=== PATIENT | male | born 1940 | race Caucasian/White ===

== ENCOUNTER 2016-05-24 10:18 | Inpatient (IN) | payer OTHER ==
[~2016-05-24] VITALS: Ht 175.3 cm; Wt 81.6 kg
[2016-05-24] MEDS ORDERED: CARV25TA2 PO (10:53)
[2016-05-24] MEDS ORDERED: ATOR-22 PO (10:53)
[2016-05-24] MEDS ORDERED: SITA100T3 PO (10:53)
[2016-05-24] MEDS ORDERED: GLC500 PO (10:53)
[2016-05-24] MEDS ORDERED: CLOP1TAB15 PO (10:53)
[2016-05-24] MEDS ORDERED: GLC/500 PO (10:53)
[2016-05-24] MEDS ORDERED: LISI20TA3 PO (10:53)
[2016-05-24] MEDS ORDERED: ASPI81TA28 PO (10:53)
[2016-05-24] MEDS ORDERED: DILT120T3 PO (10:53)
[2016-05-24] MEDS ORDERED: PRED5PAK3 PO (10:53)
[2016-05-24] MEDS ORDERED: SODIUM CHLORIDE 0.9% 500ML 500 ML IV STA (11:06)
[2016-05-24] MEDS ORDERED: OPTIRAY 320 IV PRN (11:15)
[2016-05-24] MEDS ORDERED: ALBUT/IPRATROP 3MG/0.5MG NEB 3 ML VIAL INH ONE (11:15)
--- NOTE | 2016-05-24 11:32 | DIAGNOSTIC IMAGING REPORT ---
CHEST ONE VIEW PORTABLE HISTORY: Short of breath. COMPARISON: None. FINDINGS: No pneumothorax. The heart is top normal in size. Poststernotomy changes. No pleural effusions. Bibasilar interstitial thickening with a patchy airspace opacity the right lung base. IMPRESSION: 1. Patchy airspace opacity at the right lung base. This may represent a developing pneumonia. Recommend follow-up to ensure resolution. 2. Bibasilar interstitial thickening which may be chronic. Electronically signed by: Manish Lilly M.D. 05/24/2016 11:30 AM Dictated Date/Time: 05/24/2016 11:30 AM
[2016-05-24 11:39] LABS: ISTAT CREATININE 1.3 mg/dl (0.6-1.3); ISTAT HEMOGLOBIN 11.6 g/dl (14.0-18.0); ISTAT IONIZED CALCIUM 1.24 mmol/l (1.12-1.32)
[2016-05-24] MEDS ORDERED: LEVAQUIN 500MG / 100ML D5W IV STA (11:40)
[2016-05-24] MEDS ORDERED: PIPERACILLIN/TAZOBACTAM 4.5 GM/100ML D5W IV STA (11:40)
[2016-05-24] MEDS ORDERED: VANCOMYCIN INJ 1,000 MG in SODIUM CHLORIDE 0.9% 250ML 250 ML IV STA (11:40)
[2016-05-24 11:57] LABS: BASO % 0.1 %; BASO ABS # 0.01 K/uL (0-0.2); COMPLETE YES; EOS % 0.4 %; HEMATOCRIT 34.3 % (42-52); IG% 0.2 %; LYMPH % 6.3 %; LYMPH ABS # 0.57 K/uL (1.2-3.4); MEAN CORPUSCULAR HEMOGLOBIN 34.2 pg (25-34); MEAN CORPUSCULAR HGB CONC 33.2 g/dl (32-36); MEAN PLATELET VOLUME 9.1 fL (7.4-10.4); MONO % 14.1 %; NEUT % 78.9 %; PLATELET COUNT 227 K/uL (130-400); RED BLOOD COUNT 3.33 M/uL (4.7-6.1); WHITE BLOOD COUNT 9.02 K/uL (4.8-10.8)
[2016-05-24 12:07] LABS: CALCIUM 9.2 mg/dl (8.5-10.1); CREATININE 1.4 mg/dl (0.60-1.40); POTASSIUM 5.2 mmol/L (3.5-5.1); PROTHROMBIN TIME (PATIENT) 11.1 SECONDS (9.0-12.0)
[2016-05-24 12:13] LABS: ALB/GLOB RATIO 0.9 (0.9-2); CKMB/CK RATIO 8.1 (0-3.0)
[2016-05-24 12:41] VITALS: PULSE 95; O2SAT 97
--- NOTE | 2016-05-24 12:43 | DIAGNOSTIC IMAGING REPORT ---
CT ANGIOGRAM OF THE CHEST CLINICAL HISTORY: Dyspnea. COMPARISON STUDY: Chest x-ray dated 05/24/2016. TECHNIQUE: Following the IV administration of 117 cc of Optiray 320, CT angiogram of the chest was performed from the upper abdomen to the thoracic inlet utilizing the pulmonary embolus protocol. Images are reviewed in the axial, sagittal, and coronal planes. 3-D MIPS images are created and assessed. IV contrast was administered without complication. CT DOSE: 540.41 mGy.cm FINDINGS: Thyroid: Imaged portions of the thyroid gland are normal in size and attenuation. Thoracic aorta: There is atherosclerotic calcification of the thoracic aorta, which is is normal in caliber and demonstrates standard 3-vessel arch anatomy. The thoracic aorta is not well opacified. Pulmonary vasculature: The pulmonary trunk is dilated measuring 4.0 cm in diameter. This suggests pulmonary artery hypertension. There are no filling defects identified in main, lobar, or proximal segmental pulmonary branches to suggest pulmonary embolus. Evaluation of the peripheral branches is degraded by motion artifact. Heart: The patient is status post midline sternotomy. The heart is markedly enlarged and without pericardial effusion. The coronary arteries are densely calcified. Lungs and pleural spaces: Evaluation of the lung parenchyma is degraded by artery motion artifact. Emphysematous change is observed. There are small to moderate pleural effusions, right larger than left with associated atelectasis. Dense airspace consolidation is identified in the right middle lobe. Patchy airspace consolidation is also suggested in the inferior right upper lobe. Intralobular septal thickening is seen bilaterally. Layering secretions are present in the trachea. There are scattered calcified granulomas. Mediastinum: There are numerous subcentimeter mediastinal lymph nodes. These are pathologically enlarged by size criteria. Zoe: Mildly enlarged right hilar lymph nodes are likely on a reactive basis. Axillae: There is no axillary lymphadenopathy. Upper abdomen: Large calcified gallstones are identified. There are numerous calcified hepatic granulomas. There is prominent lobulation of the left kidney. This is partially imaged. Skeletal structures: The skeletal structures are osteopenic. There are healed right-sided rib fractures. No lytic or blastic bony lesions are seen. IMPRESSION: 1. There is no evidence of pulmonary embolus in the main, lobar, or proximal segmental pulmonary arteries. 2. Marked cardiomegaly with evidence of pulmonary artery hypertension. Mild diffuse intralobular septal thickening suggests a component of congestive failure. Clinical correlation will be required. 3. Suspect emphysema. 4. There is dense airspace consolidation the right middle lobe, as well as patchy airspace consolidation the right upper lobe. The appearance is typical for pneumonia. Radiographic follow-up to resolution is recommended. 5. Small to moderate pleural effusions with bibasilar atelectasis. 6. Cholelithiasis. 7. There is prominent lobulation of the left kidney. This is incompletely evaluated and is likely physiologic. Follow-up with a nonemergent contrast-enhanced abdominal CT is recommended to assess for underlying renal mass. 8. Mildly enlarged right hilar lymph nodes are likely on a reactive basis. Electronically signed by: Alexandre Almaraz M.D. 05/24/2016 12:42 PM Dictated Date/Time: 05/24/2016 12:35 PM
--- NOTE | 2016-05-24 12:55 | EMERGENCY ROOM VISIT NOTE ---
History Report prepared by Merlene: Juan Johnson Under the Supervision of: Dr. Jos Caballero M.D. First contact with patient: 10:57 Chief Complaint: SHORTNESS OF BREATH Stated Complaint: SHORTNESS OF BREATH Nursing Triage Summary: Patient arrived via EMS c/o SOB since he woke up this morning. States he became SOB from bed to bathroom and again when going downstairs. O2 93% RA. Pt states in the 70's he was told he had a little COPD. Pt states he has had a cough for 3 weeks, productive, today sputum is yellowish and "blood tinged". Pt reports taking Prednisone for rash. Hx Bypass 2009, cath 2011 and 2013 History of Present Illness The patient is a 76 year old male who presents to the Emergency Room via EMS with complaints of worsening shortness of breath starting about 3 weeks ago. He also complains of weakness. He has worsening symptoms with exertion. He notes a productive cough occurring for the past 3 weeks with yellow colored sputum. He denies fevers, chills, chest pain, abdominal pain, or any other complaints. The patient denies any history of COPD. He does not use inhalers or oxygen at home. He was recently prescribed prednisone for a rash. He is now on 40 mg of Prednisone. Source of History: patient Onset: about 3 weeks ago Position: other (global) Quality: other (shortness of breath) Timing: worsening Associated Symptoms: + cough, + weakness, No abdominal pain, No chest pain, No chills, No fevers Review of Systems See HPI for pertinent positives & negatives. A total of 10 systems reviewed and were otherwise negative. Past Medical & Surgical Medical Problems: (1) No Known Active Medical Problems (2) Rash Family History Patient reports no known family medical history. Social History Marital Status: Occupation Status: retired Current/Historical Medications Scheduled Aspirin (Aspirin Ec), 81 MG PO DAILY Atorvastatin (Lipitor), 20 MG PO DAILY Carvedilol (Coreg), 25 MG PO AMPM Clopidogrel (Plavix), 75 MG PO DAILY Diltiazem HCl (Diltiazem Cd), 120 MG PO DAILY Lisinopril (Prinivil), 20 MG PO DAILY Metformin HCl (Metformin HCl), 1,000 MG PO QPM Metformin Hcl (Glucophage), 500 MG PO DAILY Prednisone (Sterapred 12 Day), 0 PO UD Sitagliptin Phosphate (Januvia), 100 MG PO DAILY Allergies Coded Allergies: No Known Allergies (Unverified , 05/24/16) Physical Exam Vital Signs Date Time Temp Pulse Resp B/P Pulse Ox O2 Delivery O2 Flow Rate FiO2 05/24/16 13:31 95 20 167/92 100 Nebulizer 8.0 05/24/16 12:41 95 20 97 Nasal Cannula 2.0 05/24/16 11:44 95 Nasal Cannula 05/24/16 11:43 93 Room Air 05/24/16 11:40 92 22 166/92 93 Room Air 05/24/16 10:27 97 05/24/16 10:20 93 Room Air 05/24/16 10:20 36.8 95 21 172/22 94 Room Air 2.0 Physical Exam GENERAL: Patient is a healthy-appearing well-nourished General: Acutely short of breath, on oxygen. HEAD: Normocephalic atraumatic EYES: Ocular movements intact pupils equal and react to light OROPHARYNX mucous membranes are moist no exudates present no erythema or edema present NECK: Supple no nuchal rigidity CHEST: Good equal expansion LUNGS: Clear and equal to auscultation. CARDIAC: Normal S1 and S2 ABDOMEN: Soft nontender no guarding BACK: No CVA tenderness EXTREMITIES: No pain upon palpation normal muscle strength in all groups no clubbing cyanosis or edema NEURO: Patient is following commands is answering questions appropriately. Alert and oriented x3 Cranial Nerves 2-12 grossly intact Medical Decision & Procedures ER Provider Diagnostic Interpretation: X-ray results as stated below per interpretation by me and the radiologist: CHEST ONE VIEW PORTABLE HISTORY: Short of breath. COMPARISON: None. FINDINGS: No pneumothorax. The heart is top normal in size. Poststernotomy changes. No pleural effusions. Bibasilar interstitial thickening with a patchy airspace opacity the right lung base. IMPRESSION: 1. Patchy airspace opacity at the right lung base. This may represent a developing pneumonia. Recommend follow-up to ensure resolution. 2. Bibasilar interstitial thickening which may be chronic. Electronically signed by: Manish Lilly M.D. 05/24/2016 11:30 AM Dictated Date/Time: 05/24/2016 11:30 AM CTA results as stated below per my review and radiologist interpretation: CT ANGIOGRAM OF THE CHEST CLINICAL HISTORY: Dyspnea. COMPARISON STUDY: Chest x-ray dated 05/24/2016. TECHNIQUE: Following the IV administration of 117 cc of Optiray 320, CT angiogram of the chest was performed from the upper abdomen to the thoracic inlet utilizing the pulmonary embolus protocol. Images are reviewed in the axial, sagittal, and coronal planes. 3-D MIPS images are created and assessed. IV contrast was administered without complication. CT DOSE: 540.41 mGy.cm FINDINGS: Thyroid: Imaged portions of the thyroid gland are normal in size and attenuation. Thoracic aorta: There is atherosclerotic calcification of the thoracic aorta, which is is normal in caliber and demonstrates standard 3-vessel arch anatomy. The thoracic aorta is not well opacified. Pulmonary vasculature: The pulmonary trunk is dilated measuring 4.0 cm in diameter. This suggests pulmonary artery hypertension. There are no filling defects identified in main, lobar, or proximal segmental pulmonary branches to suggest pulmonary embolus. Evaluation of the peripheral branches is degraded by motion artifact. Heart: The patient is status post midline sternotomy. The heart is markedly enlarged and without pericardial effusion. The coronary arteries are densely calcified. Lungs and pleural spaces: Evaluation of the lung parenchyma is degraded by artery motion artifact. Emphysematous change is observed. There are small to moderate pleural effusions, right larger than left with associated atelectasis. Dense airspace consolidation is identified in the right middle lobe. Patchy airspace consolidation is also suggested in the inferior right upper lobe. Intralobular septal thickening is seen bilaterally. Layering secretions are present in the trachea. There are scattered calcified granulomas. Mediastinum: There are numerous subcentimeter mediastinal lymph nodes. These are pathologically enlarged by size criteria. Zoe: Mildly enlarged right hilar lymph nodes are likely on a reactive basis. Axillae: There is no axillary lymphadenopathy. Upper abdomen: Large calcified gallstones are identified. There are numerous calcified hepatic granulomas. There is prominent lobulation of the left kidney. This is partially imaged. Skeletal structures: The skeletal structures are osteopenic. There are healed right-sided rib fractures. No lytic or blastic bony lesions are seen. IMPRESSION: 1. There is no evidence of pulmonary embolus in the main, lobar, or proximal segmental pulmonary arteries. 2. Marked cardiomegaly with evidence of pulmonary artery hypertension. Mild diffuse intralobular septal thickening suggests a component of congestive failure. Clinical correlation will be required. 3. Suspect emphysema. 4. There is dense airspace consolidation the right middle lobe, as well as patchy airspace consolidation the right upper lobe. The appearance is typical for pneumonia. Radiographic follow-up to resolution is recommended. 5. Small to moderate pleural effusions with bibasilar atelectasis. 6. Cholelithiasis. 7. There is prominent lobulation of the left kidney. This is incompletely evaluated and is likely physiologic. Follow-up with a nonemergent contrast-enhanced abdominal CT is recommended to assess for underlying renal mass. 8. Mildly enlarged right hilar lymph nodes are likely on a reactive basis. Electronically signed by: Alexandre Almaraz M.D. 05/24/2016 12:42 PM Dictated Date/Time: 05/24/2016 12:35 PM Laboratory Results Test 05/24/16 10:42 05/24/16 11:26 05/24/16 11:28 Immature Granulocyte % (Auto) 0.2 % White Blood Count 9.02 K/uL (4.8-10.8) Red Blood Count 3.33 M/uL (4.7-6.1) Hemoglobin 11.4 g/dL (14.0-18.0) Hematocrit 34.3 % (42-52) Mean Corpuscular Volume 103.0 fL (80-100) Mean Corpuscular Hemoglobin 34.2 pg (25-34) Mean Corpuscular Hemoglobin Concent 33.2 g/dl (32-36) Platelet Count 227 K/uL (130-400) Mean Platelet Volume 9.1 fL (7.4-10.4) Neutrophils (%) (Auto) 78.9 % Lymphocytes (%) (Auto) 6.3 % Monocytes (%) (Auto) 14.1 % Eosinophils (%) (Auto) 0.4 % Basophils (%) (Auto) 0.1 % Neutrophils # (Auto) 7.11 K/uL (1.4-6.5) Lymphocytes # (Auto) 0.57 K/uL (1.2-3.4) Monocytes # (Auto) 1.27 K/uL (0.11-0.59) Eosinophils # (Auto) 0.04 K/uL (0-0.5) Basophils # (Auto) 0.01 K/uL (0-0.2) Immature Granulocyte # (Auto) 0.02 K/uL (0.00-0.02) Prothrombin Time 11.1 SECONDS (9.0-12.0) Prothromb Time International Ratio 1.0 (0.9-1.1) Total Bilirubin 0.5 mg/dl (0.2-1) Aspartate Amino Transf (AST/SGOT) 34 U/L (15-37) Alanine Aminotransferase (ALT/SGPT) 39 U/L (12-78) Alkaline Phosphatase 82 U/L (45-117) Total Protein 6.7 gm/dl (6.4-8.2) Albumin 3.1 gm/dl (3.4-5.0) Globulin 3.6 gm/dl (2.5-4.0) Albumin/Globulin Ratio 0.9 (0.9-2) Bedside Hemoglobin 11.6 g/dl (14.0-18.0) Bedside Hematocrit 34 % (42-52) Bedside Sodium 141 mEq/L (135-144) Bedside Potassium 5.2 mEq/L (3.3-5.0) Bedside Chloride 105 mEq/L (101-112) Bedside Total CO2 24 mEq/l (24-31) Bedside Blood Urea Nitrogen 26 mg/dl (7-18) Bedside Creatinine 1.3 mg/dl (0.6-1.3) Bedside Glucose (other) 174 mg/dl (70-99) Bedside Ionized Calcium (Juan Antonio) 1.24 mmol/l (1.12-1.32) Influenza Type A (RT-PCR) Neg for Influ A (NEG) Influenza Type A Antigen Neg for Influ A (NEG) Influenza Type B Antigen Neg for Influ B (NEG) Influenza Type B (RT-PCR) Neg for Influ B (NEG) Labs reviewed by ED physician. Medications Administered Medications (Trade) Dose Ordered Sig/Barry Route Start Time Stop Time Status Last Admin Dose Admin Albuterol/ Ipratropium 12 ml 12 ml ONE ONCE INH 05/24/16 11:15 05/24/16 11:16 DC 05/24/16 12:35 12 ML Sodium Chloride (Nss 500ml) 500 ml @ 999 mls/hr Q31M STAT IV 05/24/16 11:06 05/24/16 11:36 DC 05/24/16 12:30 999 MLS/HR Piperacillin Sod/ Tazobactam Sod (Zosyn Iv) 4.5 gm NOW STAT IV 05/24/16 11:40 05/24/16 11:42 DC 05/24/16 12:35 4.5 GM Levofloxacin 500 mg 500 mg NOW STAT IV 05/24/16 11:40 05/24/16 11:42 DC 05/24/16 12:36 500 MG Vancomycin HCl/ Sodium Chloride (Vancomycin Inj/ Nss 250ml) 270 ml @ 125 mls/hr NOW STAT IV 05/24/16 11:40 05/24/16 13:49 DC 05/24/16 12:36 125 MLS/HR ECG Indication: SOB/dyspnea Rate (beats per minute): 98 Rhythm: sinus rhythm Findings: T-wave inversion (Anterior), no acute ischemic change, no ectopy ED Course 1057: Past medical records reviewed. The patient was evaluated in room C05. A complete history and physical examination was performed. 1106: Sodium Chloride 500 ml @ 999 mls/hr IV 1115: DuoNeb 12 ml INH 1140: Vancomycin HCl 1000 mg/Sodium Chloride 270 ml @ 125 mls/hr IV, Levofloxacin 500 mg IV, Zosyn IV 4.5 gm IV 1215: Upon reexamination the patient is resting comfortably. I discussed results and treatment plan with the patient. He verbalizes agreement and understanding. The patient will be evaluated for further management. 1227: I discussed the patient's case with Dr. Garcia, from [facility]. Medical Decision Differential diagnosis: Etiologies such as infections, reactive airway disease, pneumonia, pneumothorax , COPD, CHF, cardiac ischemia, pulmonary embolism, musculoskeletal, gastrointestinal, as well as others were entertained. This is a 76-year-old male who presents emergency department feeling acutely short of breath. The patient is not normally on oxygen however has been on 2 L of oxygen here in the emergency department. He does appears to have a pneumonia on his chest x-ray. He was started on antibiotics in the emergency department. I did discuss case with the hospitalist service who agreed to admit the patient. Patient and are in agreement with the treatment plan. Consults Time Called: 1225 Consulting Physician: Dr. Garcia, from [facility] Returned Call: 1227 I discussed the patient's case with Dr. Garcia, from [facility]. Impression Primary Impression: Pneumonia Scribe Attestation The scribe's documentation has been prepared under my direction and personally reviewed by me in its entirety. I confirm that the note above accurately reflects all work, treatment, procedures, and medical decision making performed by me. Departure Information Dispostion Being Evaluated By Hospitalist Patient Instructions My [facility] Problem Qualifiers Primary Impression: Pneumonia Pneumonia type: due to unspecified organism Laterality: unspecified laterality Lung location: unspecified part of lung Qualified Codes: J18.9 - Pneumonia, unspecified organism
[2016-05-24] MEDS ORDERED: ALUMINUM/MAGNESIUM/SIMETH (MAALOX MAX) 30 ML UDC PO PRN (13:45)
[2016-05-24] MEDS ORDERED: MAGNESIUM HYDROXIDE SUSP 30 ML UDC PO PRN (13:45)
[2016-05-24] MEDS ORDERED: POLYETHYLENE (MIRALAX) 17 GM PACK PO PRN (13:45)
[2016-05-24] MEDS ORDERED: ACETAMINOPHEN 325 MG TAB PO PRN (13:45)
[2016-05-24] MEDS ORDERED: ALBUT/IPRATROP 3MG/0.5MG NEB 3 ML VIAL INH PRN (13:45)
[2016-05-24] MEDS ORDERED: ONDANSETRON INJ 2 MG/ML 2 ML VIAL IV PRN (13:45)
[2016-05-24 13:56] LABS: INFLUENZA A PCR Neg for Influ A (NEG); INFLUENZA B PCR Neg for Influ B (NEG)
[2016-05-24] MEDS ORDERED: CRDCD120 PO (14:29)
[2016-05-24] MEDS ORDERED: GLUCOSE 10 TABS/TUBE PO PRN (14:45)
[2016-05-24] MEDS ORDERED: DEXTROSE 50% 50 ML SYR IV PRN (14:45)
[2016-05-24] MEDS ORDERED: GLUCAGON FOR INJ 1 MG VIAL SQ PRN (14:45)
[2016-05-24] MEDS ORDERED: GLUCOSE 40% GEL 15 GM TUBE PO PRN (14:45)
--- NOTE | 2016-05-24 15:20 | History and Physical ---
History & Physical Date & Time of Service: May 24, 2016 at 15:10 Chief Complaint: Shortness Of Breath Primary Care Physician: Francia Flores MD History of Present Illness Source: patient, family Mr. Henry is a 76 y/o male with PMHx of CAD S/P CABG, HTN, and T2DM who presents to the ED by EMS complaining of SOB that started this morning. He states that at rest he is not experiencing shortness of breath. Shortness of breath evident with exertion. This morning he developed shortness of breath with ambulation from the bedroom to the bathroom as well as going down stairs. Also complains of a productive cough of yellow sputum and intermittent minimal hemoptysis 3 weeks. He denies chronic cough and reports in 1970s he was told he may have some mild COPD. However does not have an official diagnosis or currently undergoing treatment for this. He does not utilize home oxygen. In the setting of his CAD he states he has no history of UT but failed stress testing resulting in CABG. He underwent cardiac catheterization in 2011 and 2013. He denies known history of congestive heart failure. 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 Puente in [place]. On 05/21 he presented to his [facility] walk-in clinic for a diffuse, pruritic, flat, erythematous rash and is currently finishing a 6 day prednisone taper. He is uncertain of the underlying cause of this rash. In the ED: He is afebrile with multiple readings of adequate oxygenation on room air. He is without leukocytosis. Mild macrocytic anemia. Potassium of 5.2. Troponin 0.355. CTA with cardiomegaly and pulmonary artery hypertension, mild diffuse intra-lobular septal thickening, suspicion of emphysema, dense airspace consolidation of RML and patchy airspace consolidation are RUL, small to moderate pleural effusions, and no evidence of PE. EKG with NSR and PACs and T-wave inversion in leads I, aVL, and V4 through V6. He will be admitted to telemetry for community-acquired pneumonia with consideration for congestive heart failure. Past Medical/Surgical History Medical Problems: (1) Rash Status: Resolved Family History Patient reports no known family medical history. Social History Smoking Status: Former Smoker Marital Status: Occupational Status: retired Allergies Coded Allergies: No Known Allergies (Unverified , 05/24/16) Home Medications Scheduled Aspirin (Aspirin Ec), 81 MG PO DAILY Atorvastatin (Lipitor), 20 MG PO DAILY Carvedilol (Coreg), 25 MG PO AMPM Clopidogrel (Plavix), 75 MG PO DAILY Diltiazem HCl (Diltiazem Cd), 120 MG PO DAILY Lisinopril (Prinivil), 20 MG PO DAILY Metformin HCl (Metformin HCl), 1,000 MG PO QPM Metformin Hcl (Glucophage), 500 MG PO DAILY Prednisone (Sterapred 12 Day), 0 PO UD Sitagliptin Phosphate (Januvia), 100 MG PO DAILY Review of Systems Constitutional: No chills, No fever Eyes: No worsening of vision ENT: No nasal symptoms, No sore throat, No trouble swallowing Respiratory: + cough, + dyspnea on exertion, + sputum, No dyspnea at rest Cardiovascular: No chest pain Abdomen: No constipation, No diarrhea, No nausea, No pain, No vomiting Musculoskeletal: + swelling (chronic bilateral lower extremity), No calf pain Genitourinary - Male: No dysuria, No hematuria Hematologic / Lymphatic: No abnormal bleeding/bruising, No clotting problems Integumentary: + rash (started 05/21 - diffuse pruritic, erythematous, flat rash (improving) ) Physical Exam Vital Signs Date Time Temp Pulse Resp B/P Pulse Ox O2 Delivery O2 Flow Rate FiO2 05/24/16 13:31 95 20 167/92 100 Nebulizer 8.0 05/24/16 12:41 95 20 97 Nasal Cannula 2.0 05/24/16 11:44 95 Nasal Cannula 05/24/16 11:43 93 Room Air 05/24/16 11:40 92 22 166/92 93 Room Air 05/24/16 10:27 97 05/24/16 10:20 93 Room Air 05/24/16 10:20 36.8 95 21 172/22 94 Room Air 2.0 General Appearance: WD/WN, no apparent distress Head: normocephalic, atraumatic Eyes: sclerae normal ENT: hearing grossly normal Neck: supple, no JVD, trachea midline Respiratory/Chest: no respiratory distress, no accessory muscle use, + rhonchi (bases bilaterally), + wheezing (expiratory - in all lung brody bilaterally) Cardiovascular: regular rate, rhythm, no gallop, no murmur Abdomen/GI: normal bowel sounds, non tender, soft Back: no CVA tenderness Extremities/Musculoskelatal: no calf tenderness, + swelling (bilateral 1-2+ pitting edema extending to knee) Neurologic/Psych: alert, oriented x 3 Skin: normal color, warm/dry, + rash (mildly flat erythematous rash with small punctate scabs secondary to patient scratching), + pertinent finding (bilateral lower extremities dry with hardened skin and edema - evidence of chronic stasis dermatitis) Diagnostics Laboratory Results Results Past 24 Hours Test 05/24/16 10:42 05/24/16 11:26 05/24/16 11:28 Range/Units White Blood Count 9.02 4.8-10.8 K/uL Red Blood Count 3.33 4.7-6.1 M/uL Hemoglobin 11.4 14.0-18.0 g/dL Hematocrit 34.3 42-52 % Mean Corpuscular Volume 103.0 80-100 fL Mean Corpuscular Hemoglobin 34.2 25-34 pg Mean Corpuscular Hemoglobin Concent 33.2 32-36 g/dl Platelet Count 227 130-400 K/uL Mean Platelet Volume 9.1 7.4-10.4 fL Neutrophils (%) (Auto) 78.9 % Lymphocytes (%) (Auto) 6.3 % Monocytes (%) (Auto) 14.1 % Eosinophils (%) (Auto) 0.4 % Basophils (%) (Auto) 0.1 % Neutrophils # (Auto) 7.11 1.4-6.5 K/uL Lymphocytes # (Auto) 0.57 1.2-3.4 K/uL Monocytes # (Auto) 1.27 0.11-0.59 K/uL Eosinophils # (Auto) 0.04 0-0.5 K/uL Basophils # (Auto) 0.01 0-0.2 K/uL RDW Standard Deviation 55.0 36.4-46.3 fL RDW Coefficient of Variation 14.6 11.5-14.5 % Immature Granulocyte % (Auto) 0.2 % Immature Granulocyte # (Auto) 0.02 0.00-0.02 K/uL Prothrombin Time 11.1 9.0-12.0 SECONDS Prothromb Time International Ratio 1.0 0.9-1.1 Sodium Level 142 136-145 mmol/L Potassium Level 5.2 3.5-5.1 mmol/L Chloride Level 107 98-107 mmol/L Carbon Dioxide Level 25 21-32 mmol/L Anion Gap 10.0 18.0 16-25 mmol/L Blood Urea Nitrogen 27 7-18 mg/dl Creatinine 1.40 0.60-1.40 mg/dl Est Creatinine Clear Calc Drug Dose 46.3 ml/min Estimated GFR () 57.0 Estimated GFR (Non- 49.1 BUN/Creatinine Ratio 19.0 10-20 Random Glucose 165 70-99 mg/dl Calcium Level 9.2 8.5-10.1 mg/dl Total Bilirubin 0.5 0.2-1 mg/dl Aspartate Amino Transf (AST/SGOT) 34 15-37 U/L Alanine Aminotransferase (ALT/SGPT) 39 12-78 U/L Alkaline Phosphatase 82 45-117 U/L Total Creatine Kinase 36 39-308 U/L Creatine Kinase MB 2.9 0.5-3.6 ng/ml Creatine Kinase MB Ratio 8.1 0-3.0 Troponin I 0.355 0-0.045 ng/ml Total Protein 6.7 6.4-8.2 gm/dl Albumin 3.1 3.4-5.0 gm/dl Globulin 3.6 2.5-4.0 gm/dl Albumin/Globulin Ratio 0.9 0.9-2 Bedside Hemoglobin 11.6 14.0-18.0 g/dl Bedside Hematocrit 34 42-52 % Bedside Sodium 141 135-144 mEq/L Bedside Potassium 5.2 3.3-5.0 mEq/L Bedside Chloride 105 101-112 mEq/L Bedside Total CO2 24 24-31 mEq/l Bedside Blood Urea Nitrogen 26 7-18 mg/dl Bedside Creatinine 1.3 0.6-1.3 mg/dl Bedside Glucose (other) 174 70-99 mg/dl Bedside Ionized Calcium (Juan Antonio) 1.24 1.12-1.32 mmol/l Influenza Type A (RT-PCR) Neg for Influ A NEG Influenza Type A Antigen Neg for Influ A NEG Influenza Type B Antigen Neg for Influ B NEG Influenza Type B (RT-PCR) Neg for Influ B NEG Microbiology Results 05/24/16 Blood Culture, Received Pending 05/24/16 Blood Culture, Received Pending Diagnostic Radiology CT ANGIOGRAM OF THE CHEST CLINICAL HISTORY: Dyspnea. COMPARISON STUDY: Chest x-ray dated 05/24/2016. TECHNIQUE: Following the IV administration of 117 cc of Optiray 320, CT angiogram of the chest was performed from the upper abdomen to the thoracic inlet utilizing the pulmonary embolus protocol. Images are reviewed in the axial, sagittal, and coronal planes. 3-D MIPS images are created and assessed. IV contrast was administered without complication. CT DOSE: 540.41 mGy.cm FINDINGS: Thyroid: Imaged portions of the thyroid gland are normal in size and attenuation. Thoracic aorta: There is atherosclerotic calcification of the thoracic aorta, which is is normal in caliber and demonstrates standard 3-vessel arch anatomy. The thoracic aorta is not well opacified. Pulmonary vasculature: The pulmonary trunk is dilated measuring 4.0 cm in diameter. This suggests pulmonary artery hypertension. There are no filling defects identified in main, lobar, or proximal segmental pulmonary branches to suggest pulmonary embolus. Evaluation of the peripheral branches is degraded by motion artifact. Heart: The patient is status post midline sternotomy. The heart is markedly enlarged and without pericardial effusion. The coronary arteries are densely calcified. Lungs and pleural spaces: Evaluation of the lung parenchyma is degraded by artery motion artifact. Emphysematous change is observed. There are small to moderate pleural effusions, right larger than left with associated atelectasis. Dense airspace consolidation is identified in the right middle lobe. Patchy airspace consolidation is also suggested in the inferior right upper lobe. Intralobular septal thickening is seen bilaterally. Layering secretions are present in the trachea. There are scattered calcified granulomas. Mediastinum: There are numerous subcentimeter mediastinal lymph nodes. These are pathologically enlarged by size criteria. Zoe: Mildly enlarged right hilar lymph nodes are likely on a reactive basis. Axillae: There is no axillary lymphadenopathy. Upper abdomen: Large calcified gallstones are identified. There are numerous calcified hepatic granulomas. There is prominent lobulation of the left kidney. This is partially imaged. Skeletal structures: The skeletal structures are osteopenic. There are healed right-sided rib fractures. No lytic or blastic bony lesions are seen. IMPRESSION: 1. There is no evidence of pulmonary embolus in the main, lobar, or proximal segmental pulmonary arteries. 2. Marked cardiomegaly with evidence of pulmonary artery hypertension. Mild diffuse intralobular septal thickening suggests a component of congestive failure. Clinical correlation will be required. 3. Suspect emphysema. 4. There is dense airspace consolidation the right middle lobe, as well as patchy airspace consolidation the right upper lobe. The appearance is typical for pneumonia. Radiographic follow-up to resolution is recommended. 5. Small to moderate pleural effusions with bibasilar atelectasis. 6. Cholelithiasis. 7. There is prominent lobulation of the left kidney. This is incompletely evaluated and is likely physiologic. Follow-up with a nonemergent contrast-enhanced abdominal CT is recommended to assess for underlying renal mass. 8. Mildly enlarged right hilar lymph nodes are likely on a reactive basis. CHEST ONE VIEW PORTABLE HISTORY: Short of breath. COMPARISON: None. FINDINGS: No pneumothorax. The heart is top normal in size. Poststernotomy changes. No pleural effusions. Bibasilar interstitial thickening with a patchy airspace opacity the right lung base. IMPRESSION: 1. Patchy airspace opacity at the right lung base. This may represent a developing pneumonia. Recommend follow-up to ensure resolution. 2. Bibasilar interstitial thickening which may be chronic. EKG Poor data quality, interpretation may be adversely affected Sinus rhythm with Premature atrial complexes ST & T wave abnormality, consider lateral ischemia Abnormal ECG No previous ECGs available Impression Assessment and Plan Mr. Henry is a 76 y/o male with PMHx of CAD S/P CABG, HTN, and T2DM who presents to the ED by EMS complaining of SOB that started this morning. In the ED: He is afebrile with multiple readings of adequate oxygenation on room air. He is without leukocytosis. Mild macrocytic anemia. Potassium of 5.2. Troponin 0.355. CTA with cardiomegaly and pulmonary artery hypertension, mild diffuse intra-lobular septal thickening, suspicion of emphysema, dense airspace consolidation of RML and patchy airspace consolidation are RUL, small to moderate pleural effusions, and no evidence of PE. EKG with NSR and PACs and T- wave inversion in leads I, aVL, and V4 through V6. He will be admitted to telemetry for community-acquired pneumonia with consideration for congestive heart failure. Community Acquired Pneumonia: - Levaquin 750 mg IV daily - Duo nebs QID and Q2H PRN Congestive Heart Failure?: Follows with Dr. Puente ([place]) - EKG - NSR with evidence of T wave inversions - repeat EKG in AM and PRN - no c /o CP - Serial cardiac enzymes - Lasix 40 mg IV 1 dose - Echocardiogram - pending Macrocytic Anemia: - Obtain B12 and folate levels - continue to trend CBC CAD S/P CABG and HTN: - ASA 81 mg daily and Plavix 75 mg daily - Atorvastatin 20 mg daily - Carvedilol 25 mg BID - Diltiazem CD 120 mg daily - Lisinopril 20 mg daily Diffuse Rash - Urticaria? - Complete outpatient prednisone taper - Prednisone 10 mg Q8H x 1 day, Q12H x 1 day, then once daily T2DM: - Hold metformin and Januvia - SSI - goal range 120-160; correction factor 35 DVT Prophylaxis: Heparin 5000 units SC BID Code Status: FULL RESUSCITATION Disposition: - PT/OT Evaluations - CT - prominent L typically loculation likely physiological - recommend nonemergent contrast-enhanced abdominal CT -- Consideration after acute management complete I personally evaluated this patient and performed a physical exam. I reviewed the orders. I read this H&P completed by Judy Mcgrath PA-C and agree with the contents in entirety. The patient is already feeling much better this evening. He lives in his home with his . Level of Care Telemetry Resuscitation Status FULL RESUSCITATION VTE Prophylaxis VTE Risk Assessment Done? Y/N: Yes Risk Level: Moderate Given or contraindicated: Unfractionated heparin SQ, T.E.D. Stockings, SCD's
[2016-05-24] MEDS ORDERED: FUROSEMIDE INJ 40 MG in SYRINGE 0 ML IV ONE (15:45)
[2016-05-24 16:05] VITALS: BP 164/92; PULSE 91; TEMP 36.9; O2SAT 91; Ht 175.3 cm; Wt 81.6 kg
[2016-05-24] MEDS: ALBUT/IPRATROP 3MG/0.5MG NEB 3 ML VIAL INH SCH ×2 (16:07→19:50)
[2016-05-24 16:08] VITALS: PULSE 91; O2SAT 91
[2016-05-24] MEDS: INSULIN ASPART 100 UNITS/ML 3 ML PEN SC SCH ×2 (16:15→20:53)
[2016-05-24 17:54] LABS: CKMB/CK RATIO 7.6 (0-3.0)
[2016-05-24 19:03] VITALS: BP 159/77; PULSE 99; TEMP 37; O2SAT 94
[2016-05-24 19:51] VITALS: PULSE 90; O2SAT 94
[2016-05-24] MEDS ORDERED: HEPARIN SOD 5000 UNIT/0.5 ML CARP SQ SCH (21:00)
[2016-05-24] MEDS ORDERED: CARVEDILOL 25 MG TAB PO SCH (21:00)
[2016-05-25] VITALS (15 sets, daily range): BP systolic 119–167; BP diastolic 61–88; PULSE 70–117; TEMP 36.6–37.2; O2SAT 93–97
[2016-05-25 00:01] LABS: CKMB/CK RATIO 7.6 (0-3.0)
[2016-05-25] MEDS ORDERED: HEPARIN IV LOW DOSE NO BOLUS STA (00:39)
[2016-05-25] MEDS ORDERED: CARVEDILOL 3.125 MG TAB PO STA (00:54)
[2016-05-25] MEDS ORDERED: HEPARIN 25,000 UNIT/500ML D5W 500 ML IV PRN (01:00)
[2016-05-25 01:40] LABS: PARTIAL THROMBOPLASTIN RATIO 0.9
[2016-05-25 06:58] LABS: HEMATOCRIT 32.9 % (42-52); MEAN CELL VOLUME 103.5 fL (80-100); MEAN CORPUSCULAR HEMOGLOBIN 35.2 pg (25-34); MEAN PLATELET VOLUME 9.1 fL (7.4-10.4); PLATELET COUNT 182 K/uL (130-400); RED BLOOD COUNT 3.18 M/uL (4.7-6.1); WHITE BLOOD COUNT 6.05 K/uL (4.8-10.8)
[2016-05-25 07:03] LABS: ESTIMATED AVERAGE GLUCOSE 114 mg/dl; HA1C FLAG Normal (Normal)
[2016-05-25 07:29] LABS: BUN/CREATININE RATIO 17.9 (10-20); CREATININE 1.4 mg/dl (0.60-1.40); MAGNESIUM 1.5 mg/dl (1.8-2.4); POTASSIUM 4.2 mmol/L (3.5-5.1)
[2016-05-25] MEDS: ALBUT/IPRATROP 3MG/0.5MG NEB 3 ML VIAL INH SCH ×5 (07:56→20:42)
[2016-05-25] MEDS: CARVEDILOL 25 MG TAB PO SCH ×2 (07:57→21:10)
[2016-05-25] MEDS: CLOPIDOGREL BISULFATE 75 MG TAB PO SCH (07:58)
[2016-05-25] MEDS: LISINOPRIL 20 MG TAB PO SCH (07:58)
[2016-05-25] MEDS: ASPIRIN 81 MG ECTAB PO SCH (07:58)
[2016-05-25] MEDS: ATORVASTATIN 20 MG TAB PO SCH (07:58)
[2016-05-25] MEDS: INSULIN ASPART 100 UNITS/ML 3 ML PEN SC SCH ×4 (08:03→21:00)
[2016-05-25 08:43] LABS: PARTIAL THROMBOPLASTIN RATIO 1.1
[2016-05-25] MEDS ORDERED: DILTIAZEM HCL 120 MG CAPCR PO SCH (09:00)
[2016-05-25] MEDS ORDERED: HEPARIN IV BOLUS 4,500 UNIT in SYRINGE 0 ML IV ONE (11:00)
--- NOTE | 2016-05-25 12:23 | Hospitalist Progress Note ---
Hospitalist Progress Note Date of Service May 25, 2016. Subjective Pt evaluation today including: conversation w/ patient, physical exam, chart review, lab review, review of studies, review of inpatient medication list Patient is feeling well. He is breathing close to baseline. No chest pain. Cough is much reduced. He would like to go home tomorrow. Additional Comments: A 10 system review was performed and all were negative. Positives were placed in the subjective section. Objective Vital Signs Date Time Temp Pulse Resp B/P Pulse Ox O2 Delivery O2 Flow Rate FiO2 05/25/16 08:19 89 16 95 Nasal Cannula 2.0 05/25/16 08:00 Nasal Cannula 1.0 05/25/16 07:45 36.8 117 20 153/88 95 Nasal Cannula 1.0 05/25/16 05:17 36.8 85 18 162/79 94 05/25/16 04:41 95 Nasal Cannula 2.0 05/25/16 00:08 95 Nasal Cannula 2.0 05/25/16 00:00 36.6 82 18 167/85 95 05/24/16 19:51 90 18 94 Nasal Cannula 2.0 05/24/16 19:03 37.0 99 18 159/77 94 Nasal Cannula 2.0 05/24/16 16:08 91 18 91 Nasal Cannula 2.0 05/24/16 16:05 36.9 91 18 164/92 91 Nasal Cannula 2.0 05/24/16 13:31 95 20 167/92 100 Nebulizer 8.0 05/24/16 12:41 95 20 97 Nasal Cannula 2.0 Physical Exam Notes: GEN: Awake, alert, and oriented x 3. Not in acute distress HEENT: Tm's intact, no inflammation, EOMI, PERRLA, MMM Neck: Soft, supple Lungs: + exp wheezes b/l. Heart: REG, nrl S1S2 without murmurs, rubs or gallops Abdomen: Soft, NT, ND, + BS EXT: No C/C/E NEURO: CN's II-XII grossly intact, non-focal Skin: warm, dry, no rashes PSYCH: pleasant, cooperative. Laboratory Results Last 24 Hours Test 05/24/16 16:26 05/24/16 17:06 05/24/16 20:01 05/24/16 23:20 Bedside Glucose 128 mg/dl 163 mg/dl Total Creatine Kinase 38 U/L 33 U/L Creatine Kinase MB 2.9 ng/ml 2.5 ng/ml Creatine Kinase MB Ratio 7.6 7.6 Troponin I 0.472 ng/ml 0.508 ng/ml Test 05/25/16 01:15 05/25/16 06:37 05/25/16 08:18 05/25/16 11:25 Activated Partial Thromboplast Time 22.6 SECONDS 29.5 SECONDS Partial Thromboplastin Ratio 0.9 1.1 White Blood Count 6.05 K/uL Red Blood Count 3.18 M/uL Hemoglobin 11.2 g/dL Hematocrit 32.9 % Mean Corpuscular Volume 103.5 fL Mean Corpuscular Hemoglobin 35.2 pg Mean Corpuscular Hemoglobin Concent 34.0 g/dl RDW Standard Deviation 53.8 fL RDW Coefficient of Variation 14.3 % Platelet Count 182 K/uL Mean Platelet Volume 9.1 fL Sodium Level 139 mmol/L Potassium Level 4.2 mmol/L Chloride Level 101 mmol/L Carbon Dioxide Level 27 mmol/L Anion Gap 11.0 mmol/L Blood Urea Nitrogen 25 mg/dl Creatinine 1.40 mg/dl Est Creatinine Clear Calc Drug Dose 46.3 ml/min Estimated GFR () 57.0 Estimated GFR (Non- 49.1 BUN/Creatinine Ratio 17.9 Random Glucose 164 mg/dl Estimated Average Glucose 114 mg/dl Hemoglobin A1c 5.6 % Calcium Level 9.0 mg/dl Magnesium Level 1.5 mg/dl Vitamin B12 Level 299 pg/mL Folate 7.77 ng/mL Bedside Glucose 146 mg/dl Test 05/25/16 12:04 Assessment and Plan 1) Community Acquired Pneumonia: - Levaquin 750 mg IV daily - Duo nebs QID and Q2H PRN 2) Congestive Heart Failure - compensated today. 3) Elevated troponin - Will check another to make sure they have peaked. Suspect demand ischemia. As patient did not present with acute coronary syndrome. 4) CAD - ASA 81 mg daily and Plavix 75 mg daily - Atorvastatin 20 mg daily - Carvedilol 25 mg BID - Diltiazem CD 120 mg daily - Lisinopril 20 mg daily 5) Type II DM: - cont to hold metformin and Januvia - Sliding scale insulin. DVT Prophylaxis: Heparin 5000 units SC BID Code Status: FULL RESUSCITATION Disposition: Home May be ready to D/C by tomorrow.
--- NOTE | 2016-05-25 13:42 | ECHOCARDIOGRAM REPORT ---
*NOTICE TO RECEIVING REPUBLICAN AGENCY This information is strictly Confidential and protected under [place] law. [place] law prohibits you from making any further disclosure of this information unless further disclosure is expressly permitted by the written consent of the person to whom it pertains or is authorized by law. A general authorization for the release of medical or other information is not sufficient for this purpose. Hospital accepts no responsibility if the information is made available to any other person, INCLUDING THE PATIENT. Interpretation Summary * Name: YUKO DRAKE Study Date: 05/25/2016 11:33 AM BP: 162/79 mmHg * Patient Location: C.2T\S\S242\S\1 HR: 85 * : 1940 (M/d/yyyy) Gender: Male Height: 69 in * Age: 76 yrs Ethnicity: CA Weight: 186 lb * Ordering Physician: Judy Mcgrath * Performed By: Eleazar Valle RDCS * * Reason For Study: Congestive heart failure * BSA: 2.0 m2 * -- Conclusions -- * The left ventricle is grossly normal size. * There is normal left ventricular wall thickness. * Ejection Fraction = 45-50%. * Left ventricular systolic function is mildly reduced. * The distal anterior, distal lateral, distal inferior distal septum and distal anteroseptum and apex are akinetic c/w distal LAD infarct. * The right ventricular systolic function is mildly reduced. * The left atrium is moderately dilated. * Aortic valve sclerosis moderate, without significant aortic valvular stenosis. * Heavy calcification of the RCC with mild to moderate Aortic regurgitation. * Moderate pulmonic valvular regurgitation. * PAd 24 mm/hg * There is moderate mitral annular calcification. * Moderate Pulmonary HTN (PA 50 mm/hg) * Dilated IVC with abnormal collapse * Diastolic dysfunction, Grade II, consistent with elevated left atrial pressure. Procedure Details * A complete two-dimensional transthoracic echocardiogram was performed (2D, M-mode, Doppler and color flow Doppler). Left Ventricle * The left ventricle is grossly normal size. * There is no thrombus. * There is normal left ventricular wall thickness. * Ejection Fraction = 45-50%. * Left ventricular systolic function is mildly reduced. * The distal anterior, distal lateral, distal inferior distal septum and distal anteroseptum and apex are akinetic c/w distal LAD infarct. Right Ventricle * The right ventricle is grossly normal size. * The right ventricular systolic function is mildly reduced. Atria * The left atrium is moderately dilated. * Right atrial size is normal. Mitral Valve * There is moderate mitral annular calcification. * There is mild mitral regurgitation. Tricuspid Valve * The tricuspid valve is not well visualized, but is grossly normal. * There is mild tricuspid regurgitation. * Moderate Pulmonary HTN (PA 50 mm/hg) Aortic Valve * Aortic valve sclerosis moderate, without significant aortic valvular stenosis. * Heavy calcification of the RCC with mild to moderate Aortic regurgitation. Pulmonic Valve * The pulmonic valve is not well seen, but is grossly normal. * Moderate pulmonic valvular regurgitation. * PAd 24 mm/hg Great Vessels * The aortic root is normal size. Pericardium/Pleural * There is no pericardial effusion. Great Vessels * Dilated IVC with abnormal collapse Left Ventricular Diastolic Function * Diastolic dysfunction, Grade II, consistent with elevated left atrial pressure. * Indetermiante E to e' ratio MMode 2D Measurements and Calculations IVSd 1.3 cm LVIDd 4.5 cm LVIDs 3.2 cm LVPWd 1.2 cm IVS/LVPW 1.1 FS 29.1 % EDV(Teich) 94.7 ml ESV(Teich) 41.6 ml EF(Teich) 56.0 % EDV(cubed) 93.9 ml ESV(cubed) 33.4 ml EF(cubed) 64.4 % LV mass(C)d 215.7 grams LV mass(C)dI 107.7 grams/m\S\2 SV(Teich) 53.1 ml SI(Teich) 26.5 ml/m\S\2 SV(cubed) 60.5 ml SI(cubed) 30.2 ml/m\S\2 Ao root diam 3.3 cm Ao root area 8.3 cm\S\2 ACS 1.4 cm LA dimension 3.3 cm asc Aorta Diam 4.0 cm LA/Ao 1.0 LVOT diam 2.0 cm LVOT area 3.1 cm\S\2 LVAd ap4 27.1 cm\S\2 LVLd ap4 8.1 cm EDV(MOD-sp4) 73.0 ml LVAs ap4 18.2 cm\S\2 LVLs ap4 7.9 cm ESV(MOD-sp4) 36.0 ml EF(MOD-sp4) 50.7 % LVAd ap2 31.3 cm\S\2 LVLd ap2 8.4 cm EDV(MOD-sp2) 98.0 ml LVAs ap2 22.5 cm\S\2 LVLs ap2 8.3 cm ESV(MOD-sp2) 48.0 ml EF(MOD-sp2) 51.0 % SV(MOD-sp4) 37.0 ml SI(MOD-sp4) 18.5 ml/m\S\2 SV(MOD-sp2) 50.0 ml SI(MOD-sp2) 25.0 ml/m\S\2 Doppler Measurements and Calculations MV E max ilia 94.3 cm/sec MV A max ilia 69.1 cm/sec MV E/A 1.4 MV dec time 0.14 sec Ao V2 max 130.3 cm/sec Ao max PG 6.8 mmHg Ao max PG (full) 5.0 mmHg Ao V2 mean 87.7 cm/sec Ao mean PG 3.5 mmHg Ao V2 VTI 25.3 cm YULIANA(V,A) 1.6 cm\S\2 YULIANA(V,D) 1.6 cm\S\2 AI max ilia 371.1 cm/sec AI max PG 55.1 mmHg AI dec slope 309.4 cm/sec\S\2 AI P1/2t 351.4 msec LV V1 max PG 1.8 mmHg LV V1 max 67.6 cm/sec MR max ilia 487.7 cm/sec MR max PG 95.1 mmHg MR mean ilia 382.4 cm/sec MR mean PG 64.6 mmHg MR VTI 165.6 cm SV(Ao) 210.3 ml SI(Ao) 105.0 ml/m\S\2 PA V2 max 78.4 cm/sec PA max PG 2.5 mmHg PA acc slope 366.9 cm/sec\S\2 PA acc time 0.12 sec PI max ilia 273.9 cm/sec PI max PG 30.0 mmHg PI dec slope 233.6 cm/sec\S\2 PI P1/2t 343.4 msec TR max ilia 330.1 cm/sec PA pr(Accel) 25.1 mmHg
[2016-05-25] MEDS: LEVOFLOXACIN / D5W 750 MG in PREMIXED IN D5W 150 ML IV SCH (14:12)
--- NOTE | 2016-05-25 15:17 | CARDIOLOGY CONSULTATION ---
DATE OF CONSULTATION: 05/25/2016 REQUESTING: Dr. Iraj Garcia. ELECTRICIAN MASTER: Donald Potter D.O., [facility]. REASON FOR CONSULTATION: Known coronary artery disease and coronary artery bypass grafting, possible congestive heart failure in the face of pneumonia. Dear Dr. Garcia: It was a pleasure to see Javier today in consultation with regards to his known coronary artery disease, CAT scan of his chest confirming pneumonia and mildly elevated troponins. As you know, he is a pleasant 76-year-old gentleman who is usually followed by cardiology in [place]. He describes over the last 2 weeks of increasing shortness of breath especially with activity which is new for him, up and down the stairs he was short of breath. He has had a cough which has been productive with yellowish and blood tinged sputum. He has been taking prednisone for a rash. He denies any fevers or chills but he notes shortness of breath is new for him. He denies any chest pain, chest pressure, chest heaviness, lightheadedness, dizziness, presyncope, syncope. He does have chronic lower extremity edema which he states is not any worse. He does not weigh himself on a regular basis. He denies any increased abdominal distention. He sleeps on 2 pillows and occasionally a third, but that is not unusual for him. He is not on oxygen at home. He has had a recent rash. He denies any dark black tarry stools, blood in his stool. He does have some arthralgias. The rest of review of systems is otherwise negative. PAST MEDICAL HISTORY: 1. Coronary artery disease, status post coronary artery bypass grafting. 2. Hypertension. 3. Diabetes mellitus, type 2. 4. Pneumonia. 5. COPD. 6. Echocardiogram with mild left ventricular dysfunction and a distal LAD infarct. 7. Status post open abdominal aortic aneurysm repair. SOCIAL HISTORY: He is a former smoker, currently does not smoke. He is . He is retired. FAMILY HISTORY: Noncontributory. MEDICATIONS: Reviewed in electronic medical record. PHYSICAL EXAMINATION: GENERAL: He is awake, alert, oriented x3. He is in no acute distress. He notes that his cough is improving. He does not appear short of breath at rest. VITAL SIGNS: His heart rate is 83, respirations 20, blood pressure 145/66, his sats 95% on room air. HEENT: Mildly reduced carotid upstrokes. No evidence of carotid bruits. Jugular venous pressure appeared slightly elevated. His sclerae are anicteric. His hearing is normal. LUNGS: Clear to auscultation with coarse breath sounds in the right lung field. No rhonchi or wheezing. HEART: Regular rate and rhythm. No appreciable murmurs, rubs or gallops. ABDOMEN: Soft, nontender, nondistended, positive bowel sounds. EXTREMITIES: Mild bilateral lower extremity edema with chronic skin changes. PSYCHIATRIC: His affect appear appropriate. NEUROLOGIC: He is awake, alert and oriented x3. DIAGNOSTIC STUDIES: CT of his chest confirms a right middle lobe pneumonia as well as emphysema and pulmonary hypertension and small bilateral pleural effusions. LABORATORY STUDIES: First troponin is 0.355, the second is 0.472 and the third is 0.508. His sodium is 141, potassium 5.2, his BUN is 27 with a creatinine of 1.4. His white count was 6.05, hemoglobin 11.2, platelet count of 182. EKG: Sinus rhythm, diffuse T-wave inversions, consider inferior and anterolateral ischemia when compared to the ECG from 1:00 a.m. the deep symmetrical T-wave inversions in the anterolateral leads are improved. Normal LV size and function, EF 45%-50%. The distal anterior, distal lateral, distal inferior, distal septum and distal anterior septum and apex are akinetic consistent with a distal LAD infarct. The right ventricle is normal size with reduced systolic function. He has moderate pulmonary hypertension and type 2 diastolic dysfunction. IMPRESSION: 1. Increased troponin, likely on the basis of demand ischemia. 2. Diffuse T-wave inversions in the inferior and anterolateral leads which have improved with no prior EKGs for comparison. 3. Mild ischemic cardiomyopathy. 4. Prior coronary artery bypass grafting with a repeat cardiac catheterization he describes in 2012. 5. Status post open abdominal aortic aneurysm. PLAN: His echo is consistent with a prior LAD infarct. I do not think it is acute. Without the comparison of a prior EKG or a prior echo though it is difficult to ascertain that, will try to obtain some outpatient records to assess that. It is possible his troponin could remain elevated 10-14 days after a heart attack. He has pneumonia and he is receiving appropriate antibiotics. I agree that he does have some mild heart failure symptoms and his echocardiogram confirms that as well as his CAT scan of his chest with pleural effusions and I would agree with gentle diuresis. Based on his blood pressure and heart rate, we may be able to up titrate his medications with the possibility of uptitrating his lisinopril to 30 mg daily and trying to stop his diltiazem which only will make his lower extremity edema worse. The other option would be to add something like hydralazine. My hope is with gentle diuresis his blood pressure will improve. We will have to watch his renal function closely. At this point, there is no indication for coronary artery intervention, he is not having any chest pain or chest pressure. Thank you for allowing us to participate in his care. We will continue to follow him with you. LEVI
[2016-05-25 17:21] LABS: PARTIAL THROMBOPLASTIN RATIO 1.6
[2016-05-26 04:10] VITALS: BP 141/81; PULSE 91; TEMP 36.5; O2SAT 97
[2016-05-26 06:55] LABS: HEMATOCRIT 31.7 % (42-52); MEAN CELL VOLUME 100.3 fL (80-100); MEAN CORPUSCULAR HEMOGLOBIN 34.2 pg (25-34); MEAN CORPUSCULAR HGB CONC 34.1 g/dl (32-36); MEAN PLATELET VOLUME 9.1 fL (7.4-10.4); PLATELET COUNT 167 K/uL (130-400); RED BLOOD COUNT 3.16 M/uL (4.7-6.1); WHITE BLOOD COUNT 4.95 K/uL (4.8-10.8)
[2016-05-26] MEDS: INSULIN ASPART 100 UNITS/ML 3 ML PEN SC SCH ×2 (07:00→12:23)
[2016-05-26 07:14] VITALS: BP 162/78; PULSE 71; TEMP 36.8; O2SAT 98
[2016-05-26 07:29] LABS: BUN/CREATININE RATIO 18.9 (10-20); CALCIUM 8.3 mg/dl (8.5-10.1); CREATININE 1.6 mg/dl (0.60-1.40); MAGNESIUM 1.7 mg/dl (1.8-2.4); POTASSIUM 3.8 mmol/L (3.5-5.1)
[2016-05-26] MEDS: CLOPIDOGREL BISULFATE 75 MG TAB PO SCH (07:47)
[2016-05-26] MEDS: CARVEDILOL 25 MG TAB PO SCH (07:47)
[2016-05-26] MEDS: LISINOPRIL 20 MG TAB PO SCH (07:47)
[2016-05-26] MEDS: ASPIRIN 81 MG ECTAB PO SCH (07:47)
[2016-05-26] MEDS: ATORVASTATIN 20 MG TAB PO SCH (07:48)
[2016-05-26] MEDS: ALBUT/IPRATROP 3MG/0.5MG NEB 3 ML VIAL INH SCH ×3 (07:50→15:24)
[2016-05-26 07:51] VITALS: PULSE 76; O2SAT 98
[2016-05-26] MEDS ORDERED: DILTIAZEM HCL 120 MG CAPCR PO SCH (09:00)
[2016-05-26 11:12] VITALS: PULSE 75; O2SAT 93
--- NOTE | 2016-05-26 11:18 | Cardiology Follow-Up ---
Subjective General Date of Service: May 26, 2016. Pt evaluation today including: conversation w/ patient, chart review, lab review, review of studies History of Present Illness The patient is a 76 year old male Allergies Coded Allergies: No Known Allergies (Unverified , 05/24/16) Social History Smoking Status: Never Smoker Hx Tobacco Use In Past Year?: No Hx Alcohol Use - Type And Amou: Yes (2 beers in late afternoon, 2-3 glasses wine with dinner, 3 mixed drinks aft) Hx Substance Use - Type And Am: No Problem List Medical Problems: (1) Pneumonia Status: Acute Review of Systems Respiratory: + cough, + dyspnea on exertion, + shortness of breath, + sputum, No dyspnea at rest Cardiac: No chest pain, No edema, No palpitations Physical Exam Vital Signs Last Vital Signs Documentation Date Time Temp Pulse Resp B/P Pulse Ox O2 Delivery O2 Flow Rate FiO2 05/26/16 11:12 75 14 93 Room Air 05/26/16 08:00 1.0 05/26/16 07:14 36.8 162/78 Physical Exam Constitutional: General Apperance: heathly-appearing Level of Distress: NAD Lungs: Auscultation: decreased breath sounds (coarse in the righ lung brody) Cardiovascular: Heart Auscultation: RRR, no murmurs, no rubs, no gallops Abdomen: Bowel Sounds: normal Inspection & Palpation: soft, non-distended, no tenderness, guarding & rebound Extremities: no edema Assessment and Plan Assessment and Plan IMPRESSION: 1. Increased troponin, likely on the basis of demand ischemia--trending down 2. Diffuse T-wave inversions in the inferior and anterolateral leads which have improved with no prior EKGs for comparison. 3. Mild ischemic cardiomyopathy with prior LAD infarct. 4. Prior coronary artery bypass grafting with a repeat cardiac catheterization he describes in 2011. 5. Status post open abdominal aortic aneurysm. 6. right sided pneumonia 7. HTN BP much improved troponin secondary to demand ischemia' on appropriate meds follow up with [place] marine diver after D/c Laboratory Results Last 24 Hours Test 05/25/16 11:25 05/25/16 14:00 05/25/16 17:07 05/25/16 20:44 Bedside Glucose 146 mg/dl 121 mg/dl Troponin I 0.342 ng/ml Activated Partial Thromboplast Time 41.3 SECONDS Partial Thromboplastin Ratio 1.6 Test 05/26/16 06:27 05/26/16 06:52 White Blood Count 4.95 K/uL Red Blood Count 3.16 M/uL Hemoglobin 10.8 g/dL Hematocrit 31.7 % Mean Corpuscular Volume 100.3 fL Mean Corpuscular Hemoglobin 34.2 pg Mean Corpuscular Hemoglobin Concent 34.1 g/dl RDW Standard Deviation 50.5 fL RDW Coefficient of Variation 13.9 % Platelet Count 167 K/uL Mean Platelet Volume 9.1 fL Sodium Level 139 mmol/L Potassium Level 3.8 mmol/L Chloride Level 102 mmol/L Carbon Dioxide Level 27 mmol/L Anion Gap 10.0 mmol/L Blood Urea Nitrogen 30 mg/dl Creatinine 1.60 mg/dl Est Creatinine Clear Calc Drug Dose 40.5 ml/min Estimated GFR () 48.5 Estimated GFR (Non- 41.8 BUN/Creatinine Ratio 18.9 Random Glucose 146 mg/dl Calcium Level 8.3 mg/dl Magnesium Level 1.7 mg/dl Bedside Glucose 148 mg/dl
[2016-05-26 12:20] VITALS: BP 117/65; PULSE 75; TEMP 37; O2SAT 91
[2016-05-26] MEDS ORDERED: LEVO1TAB35 PO (13:00)
[2016-05-26] MEDS ORDERED: PRED5PAK3 PO (13:00)
--- NOTE | 2016-05-26 13:02 | Discharge Instructions ---
Discharge Instructions Date of Service May 26, 2016. Admission Reason for Admission: Pneumonia Discharge Discharge Diagnosis / Problem: Pneumonia Discharge Goals Goal(s): Improve function, Improve disease control Activity Recommendations Activity Limitations: resume your previous activity . Instructions / Follow-Up Instructions / Follow-Up PCP in 5-7 days Impression Printer, Dr. Puente in 1-2 weeks. Current Hospital Diet Patient's current hospital diet: Diabetes Type 2 Diet, Low Sodium Diet (2gm Na) Discharge Diet Recommended Diet: Diabetes Type 2 Diet Procedures Procedures Performed: None. Pending Studies Studies pending at discharge: no Laboratory Results Last 24 Hours Test 05/25/16 14:00 05/25/16 17:07 05/25/16 20:44 05/26/16 06:27 Troponin I 0.342 ng/ml Activated Partial Thromboplast Time 41.3 SECONDS Partial Thromboplastin Ratio 1.6 Bedside Glucose 121 mg/dl White Blood Count 4.95 K/uL Red Blood Count 3.16 M/uL Hemoglobin 10.8 g/dL Hematocrit 31.7 % Mean Corpuscular Volume 100.3 fL Mean Corpuscular Hemoglobin 34.2 pg Mean Corpuscular Hemoglobin Concent 34.1 g/dl RDW Standard Deviation 50.5 fL RDW Coefficient of Variation 13.9 % Platelet Count 167 K/uL Mean Platelet Volume 9.1 fL Sodium Level 139 mmol/L Potassium Level 3.8 mmol/L Chloride Level 102 mmol/L Carbon Dioxide Level 27 mmol/L Anion Gap 10.0 mmol/L Blood Urea Nitrogen 30 mg/dl Creatinine 1.60 mg/dl Est Creatinine Clear Calc Drug Dose 40.5 ml/min Estimated GFR () 48.5 Estimated GFR (Non- 41.8 BUN/Creatinine Ratio 18.9 Random Glucose 146 mg/dl Calcium Level 8.3 mg/dl Magnesium Level 1.7 mg/dl Test 05/26/16 06:52 05/26/16 11:18 Bedside Glucose 148 mg/dl 216 mg/dl Hemoglobin A1c Test 05/25/16 06:37 Range/Units Estimated Average Glucose 114 mg/dl Hemoglobin A1c 5.6 4.5-5.6 % Medical Emergencies . Who to Call and When: Medical Emergencies: If at any time you feel your situation is an emergency, please call 911 immediately. . Non-Emergent Contact Non-Emergency issues call your: Primary Care Provider . . "Provider Documentation" section prepared by Iraj Garcia. VTE Core Measure Inpt VTE Proph given/why not?: Unfractionated heparin VIJAYA, Germán. Tremaine, SCD 's
[2016-05-26 13:45] VITALS: BP 117/65; PULSE 75; TEMP 37; O2SAT 91
[2016-05-26] MEDS: LEVOFLOXACIN / D5W 750 MG in PREMIXED IN D5W 150 ML IV SCH (13:55)
--- NOTE | 2016-05-26 13:56 | Discharge Summary ---
Discharge Summary Date of Service May 26, 2016. Discharge Summary Admission Date: May 24, 2016 at 14:09 Discharge Date: May 26, 2016 Discharge Disposition: Home Principal Diagnosis: Right pneumonia Problems/Secondary Diagnoses: CAD/Type II DM. Procedures: None. Consultations: Cardiology, Dr. Potter Medication Reconciliation New Medications: Levofloxacin (Levaquin) 750 Mg Tab 750 MG PO DAILY for 7 Days, #7 TAB NS Continued Medications: Aspirin (Aspirin Ec) 81 Mg Tab 81 MG PO DAILY Atorvastatin (Lipitor) 20 Mg Tab 20 MG PO DAILY Carvedilol (Coreg) 25 Mg Tab 25 MG PO AMPM Clopidogrel (Plavix) 75 Mg Tab 75 MG PO DAILY Diltiazem HCl (Diltiazem Cd) 120 Mg Capcr 120 MG PO DAILY Lisinopril (Prinivil) 20 Mg Tab 20 MG PO DAILY Metformin Hcl (Glucophage) 500 Mg Tab 500 MG PO DAILY WITH LUNCH Metformin HCl (Metformin HCl) 500 Mg Tab 1000 MG PO QPM WITH SUPPER. Prednisone (Sterapred 12 Day) 5 Mg Heriberto 0 PO UD, #1 0 Refills (This prescription has been renewed) Sitagliptin Phosphate (Januvia) 100 Mg Tab 100 MG PO DAILY Discharge Exam A 10 system review was performed and all were negative. GEN: Awake, alert, and oriented x 3. Not in acute distress HEENT: Tm's intact, no inflammation, EOMI, PERRLA, MMM Neck: Soft, supple Lungs: Minimal expiratory wheeze. Heart: REG, nrl S1S2 without murmurs, rubs or gallops Abdomen: Soft, NT, ND, + BS EXT: No C/C/E NEURO: CN's II-XII grossly intact, non-focal Skin: warm, dry, no rashes PSYCH: pleasant, cooperative, no signs of significant anxiety or depression. Hospital Course Patient was admitted with a community acquired right pneumonia. He was treated with IV Levaquin, Duo nebs, supplemental oxygen and incentive spirometry and had prompt improvement in his symptoms. At admission it was felt that the patient also had an acute diastolic CHF and was given a single dose of IV Lasix 40mg which resulted in him being compensated the remainder of the hospital stay. His troponin levels increased mildly to a high of 0.508. He was seen by cardiology, Dr. Potter who felt that this finding was likely due to demand ischemia. No cardiology intervention was required. The patient was stable at the time of discharge. His pulse ox was 93% on room air. DVT Prophylaxis: Heparin 5000 units SC BID Total Time Spent: Greater than 30 minutes This includes examination of the patient, discharge planning, medication reconciliation, and communication with other providers. Discharge Instructions Please refer to the electronic Patient Visit Report (Discharge Instructions) for additional information. Follow-Up PCP in 5-7 days Cardiology, Dr. Puente - in 1-2 weeks.
[2016-08-15] MEDS ORDERED: CLAR-78 PO (11:08)
[2016-08-18] MEDS ORDERED: LEVO750T23 PO (11:42)
== END 2016-05-26 15:59 | disposition home or self-care (01) | DRG 194 ==
LOC: ENRESERVDT → ENRESERVTM → EDBD 10:18 → C.EDC 10:22 → C.2T 14:09
PROVIDERS: ADMIT Hospitalist; ATTEND Hospitalist
DX: J18.9 Pneumonia, unspecified organism (principal); I24.8 Other forms of acute ischemic heart disease; I50.9 Heart failure, unspecified; D53.9 Nutritional anemia, unspecified; I25.10 Atherosclerotic heart disease of native coronary artery without angina pectoris; I10 Essential (primary) hypertension; E11.9 Type 2 diabetes mellitus without complications; L50.9 Urticaria, unspecified; I27.2 Other secondary pulmonary hypertension; I51.7 Cardiomegaly; R93.422 Abnormal radiologic findings on diagnostic imaging of left kidney; Z95.1 Presence of aortocoronary bypass graft; Z87.891 Personal history of nicotine dependence; Z79.02 Long term (current) use of antithrombotics/antiplatelets; Z79.82 Long term (current) use of aspirin; Z79.84 Long term (current) use of oral hypoglycemic drugs; I25.2 Old myocardial infarction

== ENCOUNTER 2016-08-15 10:46 | Inpatient (IN) | payer OTHER ==
[~2016-08-15] VITALS: Ht 167.6 cm; Wt 87.2 kg
[~2016-08-15 10:46] MED LIST: ASPI81TA28 PO; ATOR-22 PO; CARV25TA2 PO; CLOP1TAB15 PO; DILT120C50 PO; GLC/500 PO; GLC500 PO; LISI20TA3 PO; PRED5PAK3 PO; SITA100T3 PO
[2016-08-15 11:00] VITALS: Ht 167.6 cm; Wt 87.2 kg
[2016-08-15] MEDS ORDERED: CLAR1TAB25 PO (11:08)
[2016-08-15] MEDS ORDERED: MISCCAP80 PO (11:08)
[2016-08-15] MEDS ORDERED: DILT120C67 PO (11:08)
[2016-08-15] MEDS ORDERED: VNTHFA/IN INH (11:11)
[2016-08-15] MEDS ORDERED: AMOX500T PO (11:11)
[2016-08-15 11:48] LABS: BASO % 0.5 %; BASO ABS # 0.05 K/uL (0-0.2); COMPLETE YES; EOS % 9.9 %; HEMATOCRIT 35.4 % (42-52); IG% 0.3 %; LYMPH % 3.1 %; LYMPH ABS # 0.31 K/uL (1.2-3.4); MEAN CELL VOLUME 103.2 fL (80-100); MEAN CORPUSCULAR HEMOGLOBIN 32.4 pg (25-34); MEAN CORPUSCULAR HGB CONC 31.4 g/dl (32-36); MONO % 17.8 %; NEUT % 68.4 %; PLATELET COUNT 226 K/uL (130-400); RED BLOOD COUNT 3.43 M/uL (4.7-6.1); WHITE BLOOD COUNT 9.99 K/uL (4.8-10.8)
[2016-08-15 11:52] LABS: CALCIUM 8.5 mg/dl (8.5-10.1)
[2016-08-15 11:54] LABS: INR 1.1 (0.9-1.1); PARTIAL THROMBOPLASTIN RATIO 1.2; PROTHROMBIN TIME (PATIENT) 11.8 SECONDS (9.0-12.0)
[2016-08-15 11:57] LABS: BUN/CREATININE RATIO 14.4 (10-20); POTASSIUM 5.9 mmol/L (3.5-5.1)
[2016-08-15 12:02] LABS: ALB/GLOB RATIO 0.6 (0.9-2); CKMB/CK RATIO 2.1 (0-3.0)
[2016-08-15] MEDS ORDERED: PIPERACILLIN/TAZOBACTAM 3.375 GM/100ML D5W IV STA (12:17)
--- NOTE | 2016-08-15 12:20 | DIAGNOSTIC IMAGING REPORT ---
CHEST 2 VIEWS ROUTINE CLINICAL HISTORY: Respiratory distress. Cough. COMPARISON STUDY: 05/24/2016 FINDINGS: The heart is enlarged. There are postsurgical changes of midline sternotomy. There are right lower and middle lobe airspace opacities suspicious for pneumonia. There is associated right pleural effusion. There is an old right-sided rib fracture. There is no overt failure.[ IMPRESSION: Right lower and middle lobe airspace opacities suspicious for pneumonia. Right pleural effusion. Clinical and radiographic follow-up is recommended. Electronically signed by: Matt Falk M.D. 08/15/2016 12:19 PM Dictated Date/Time: 08/15/2016 12:17 PM
--- NOTE | 2016-08-15 12:47 | EMERGENCY ROOM VISIT NOTE ---
History Report prepared by Merlene: Debbi Andrew Under the Supervision of: Dr. Jos Hernández D.O. First contact with patient: 11:31 Chief Complaint: SHORTNESS OF BREATH Stated Complaint: SOB Nursing Triage Summary: Pt arrives to ER via ALS with c/o shortness of breath. Pt reports he was admitted for pneumonia here approx 3 weeks ago and discharged on antibiotics. Pt reports he never reall fully recovered from the last admission and has been short of breath since, got increasingly worse this AM and called EMS. Pt received duonebx1 and NSS 250 ml SILK SCREEN OPERATOR. Pt on 4L NC enroute to hospital. History of Present Illness The patient is a 76 year old male who presents to the Emergency Room with complaints of worsening shortness of breath for the past few weeks. The patient was admitted to the hospital in May for pneumonia. He was discharged home and states that he never felt completely better and was still experiencing symptoms. Last week he went to an acute care facility in [place] for further evaluation. He had a chest x-ray that looked like he had pneumonia and he was prescribed Augmentin. He has been taking this antibiotic for 4 days and his symptoms are not improving. The patient also reports a productive cough with yellow/orange sputum. He has been using his inhaler and cough medicine. The patient states that his shortness of breath became much worse this morning. His called an ambulance and he was brought to the ED for further evaluation. He received a DuoNeb and NSS en route to the ED. He is currently on 3L of NC O2. He does not wear oxygen at home. Source of History: patient Onset: SILK SCREEN OPERATOR Position: chest (respiratory) Quality: other (shortness of breath) Timing: worsening Modifying Factors (Relieving): oxygen Associated Symptoms: + cough Review of Systems See HPI for pertinent positives & negatives. A total of 10 systems reviewed and were otherwise negative. Past Medical & Surgical Medical Problems: (1) No Known Active Medical Problems (2) Rash Family History Patient reports no known family medical history. Social History Smoking Status: Former Smoker Marital Status: Occupation Status: retired Current/Historical Medications Scheduled Albuterol Hfa (Ventolin Hfa), 2 PUFFS INH Q4H Amoxicillin & Pot Clavulanate (Augmentin 500MG), 1,000 MG PO Q6H Aspirin (Aspirin Ec), 81 MG PO DAILY Atorvastatin (Lipitor), 20 MG PO QPM Carvedilol (Coreg), 25 MG PO AMPM Clarithromycin (Clarithromycin Er), 500 MG PO BID Clopidogrel (Plavix), 75 MG PO DAILY Diltiazem Hcl Extended Release (Diltiazem Hcl Er), 120 MG PO DAILY Lisinopril (Prinivil), 20 MG PO DAILY Metformin HCl (Metformin HCl), 1,000 MG PO QPM Metformin Hcl (Glucophage), 500 MG PO DAILY Probiotic Product (Probiotic), 2 CAP PO BID Sitagliptin Phosphate (Januvia), 100 MG PO DAILY Allergies Coded Allergies: No Known Allergies (Unverified , 08/15/16) Physical Exam Vital Signs Date Time Temp Pulse Resp B/P (MAP) Pulse Ox O2 Delivery O2 Flow Rate FiO2 08/15/16 12:56 84 16 133/73 97 Nasal Cannula 3.0 08/15/16 11:50 83 24 128/74 98 Nasal Cannula 3.0 08/15/16 11:00 88 Room Air 08/15/16 11:00 96 Nasal Cannula 3.0 08/15/16 11:00 36.8 86 26 125/58 88 Room Air 08/15/16 11:00 96 Nasal Cannula 3.0 08/15/16 10:58 82 Physical Exam CONSTITUTIONAL/VITAL SIGNS: Reviewed / noted above. GENERAL: Non-toxic in appearance. INTEGUMENTARY: Warm, dry, and [place]. HEAD: Normocephalic. EYES: without scleral icterus or trauma. ENT/OROPHARYNX: clear and moist. LYMPHADENOPATHY/NECK: Is supple without lymphadenopathy or meningismus. RESPIRATORY: Rhonchi in the right base. CARDIOVASCULAR: Regular rate and rhythm. GI/ABDOMEN: Soft and nontender. No organomegaly or pulsatile mass. No rebound or guarding. Normal bowel sounds. EXTREMITIES: Warm and well perfused. BACK: No CVA tenderness. NEUROLOGICAL: Intact without focal deficits. PSYCHIATRIC: normal affect. MUSCULOSKELETAL: Normally developed with good muscle tone. Medical Decision & Procedures ER Provider Diagnostic Interpretation: Radiology results as stated below per my review and radiologist interpretation: CHEST 2 VIEWS ROUTINE CLINICAL HISTORY: Respiratory distress. Cough. COMPARISON STUDY: 05/24/2016 FINDINGS: The heart is enlarged. There are postsurgical changes of midline sternotomy. There are right lower and middle lobe airspace opacities suspicious for pneumonia. There is associated right pleural effusion. There is an old right-sided rib fracture. There is no overt failure.[ IMPRESSION: Right lower and middle lobe airspace opacities suspicious for pneumonia. Right pleural effusion. Clinical and radiographic follow-up is recommended. Electronically signed by: Matt Falk M.D. 08/15/2016 12:19 PM Dictated Date/Time: 08/15/2016 12:17 PM Laboratory Results 08/15/16 10:20 Red Blood Count 3.43, Mean Corpuscular Volume 103.2, Mean Corpuscular Hemoglobin 32.4, Mean Corpuscular Hemoglobin Concent 31.4, Mean Platelet Volume 9.0, Neutrophils (%) (Auto) 68.4, Lymphocytes (%) (Auto) 3.1, Monocytes (%) ( Auto) 17.8, Eosinophils (%) (Auto) 9.9, Basophils (%) (Auto) 0.5, Neutrophils # (Auto) 6.83, Lymphocytes # (Auto) 0.31, Monocytes # (Auto) 1.78, Eosinophils # ( Auto) 0.99, Basophils # (Auto) 0.05 08/15/16 10:20 Test 08/15/16 10:20 White Blood Count 9.99 K/uL (4.8-10.8) Red Blood Count 3.43 M/uL (4.7-6.1) Hemoglobin 11.1 g/dL (14.0-18.0) Hematocrit 35.4 % (42-52) Mean Corpuscular Volume 103.2 fL (80-100) Mean Corpuscular Hemoglobin 32.4 pg (25-34) Mean Corpuscular Hemoglobin Concent 31.4 g/dl (32-36) Platelet Count 226 K/uL (130-400) Mean Platelet Volume 9.0 fL (7.4-10.4) Neutrophils (%) (Auto) 68.4 % Lymphocytes (%) (Auto) 3.1 % Monocytes (%) (Auto) 17.8 % Eosinophils (%) (Auto) 9.9 % Basophils (%) (Auto) 0.5 % Neutrophils # (Auto) 6.83 K/uL (1.4-6.5) Lymphocytes # (Auto) 0.31 K/uL (1.2-3.4) Monocytes # (Auto) 1.78 K/uL (0.11-0.59) Eosinophils # (Auto) 0.99 K/uL (0-0.5) Basophils # (Auto) 0.05 K/uL (0-0.2) RDW Standard Deviation 60.0 fL (36.4-46.3) RDW Coefficient of Variation 16.0 % (11.5-14.5) Immature Granulocyte % (Auto) 0.3 % Immature Granulocyte # (Auto) 0.03 K/uL (0.00-0.02) Prothrombin Time 11.8 SECONDS (9.0-12.0) Prothromb Time International Ratio 1.1 (0.9-1.1) Activated Partial Thromboplast Time 30.1 SECONDS (21.0-31.0) Partial Thromboplastin Ratio 1.2 Anion Gap 8.0 mmol/L (3-11) Est Creatinine Clear Calc Drug Dose 33.4 ml/min Estimated GFR () 37.0 Estimated GFR (Non- 31.9 BUN/Creatinine Ratio 14.4 (10-20) Calcium Level 8.5 mg/dl (8.5-10.1) Total Bilirubin 0.5 mg/dl (0.2-1) Aspartate Amino Transf (AST/SGOT) 15 U/L (15-37) Alanine Aminotransferase (ALT/SGPT) 15 U/L (12-78) Alkaline Phosphatase 87 U/L (45-117) Total Creatine Kinase 42 U/L (39-308) Creatine Kinase MB 0.9 ng/ml (0.5-3.6) Creatine Kinase MB Ratio 2.1 (0-3.0) Troponin I 0.032 ng/ml (0-0.045) Total Protein 5.9 gm/dl (6.4-8.2) Albumin 2.3 gm/dl (3.4-5.0) Globulin 3.6 gm/dl (2.5-4.0) Albumin/Globulin Ratio 0.6 (0.9-2) Laboratory results as stated above per my review. ECG Indication: SOB/dyspnea Rate (beats per minute): 82 Rhythm: normal sinus Findings: T-wave inversion (Anterolateral), no ectopy Comparison ECG Date: 05/26/16 Change: Similar but less prominent. ED Course 1135: Previous medical records were reviewed. The patient was evaluated in room C9. A complete history and physical examination was performed. 1217: Zosyn 3.375 gm IV 1221: I reassessed the patient at this time. He is resting comfortably. I discussed the results and treatment plan with the patient. I answered all pertaining questions that he had. He expressed understanding and verbalized agreement. 1248: I spoke with Dr. Camilo. We discussed the patient's results and treatment plan. The patient will be evaluated by the [facility] for further management. Medical Decision The differential was considered includes acute myocardial infarction, acute coronary syndrome, myocarditis, pericarditis, pericardial effusions/tamponade, esophageal perforation, pulmonary embolism, pneumonia, pneumothorax, cardiomyopathy, congestive heart, anemia , COPD/asthma exacerbation. This is a 76-year-old male who presents to the ED with a chief complaint of shortness of breath. The patient had pneumonia and was admitted in June. The patient states that he never felt like he completely recovered from this. He was placed on 2 courses of antibiotics over the past couple of weeks for cough productive of yellow sputum. He's been having some increasing shortness of breath. His oxygen saturations are 88% on room air. He is not on home oxygen. He most recently has been on Augmentin. The patient's exam reveals some rhonchi in the right base. He is in no distress. His CBC was unremarkable. The BUN is 29 and creatinine is 2.0. This slightly worse than his baseline. Potassium was 5.9. EKG shows a normal sinus rhythm at a rate of 82. There are T-wave inversions anterolateral. These changes are not new for this patient. The patient was given IV antibiotics. He was also given IV fluids. He will be seen by the hospitalist service for further inpatient evaluation of his symptoms. Consults Time Called: 1235 Consulting Physician: Dr. Camilo Returned Call: [address] Camilo. We discussed the patient's results and treatment plan. The patient will be evaluated by the [facility] for further management. Impression Primary Impression: Pneumonia Additional Impression: Hypoxia Scribe Attestation The scribe's documentation has been prepared under my direction and personally reviewed by me in its entirety. I confirm that the note above accurately reflects all work, treatment, procedures, and medical decision making performed by me. Departure Information Dispostion Being Evaluated By Hospitalist Referrals Francia Flores MD (PCP) Patient Instructions My [facility] Problem Qualifiers Primary Impression: Pneumonia Pneumonia type: due to unspecified organism Laterality: right Lung location : unspecified part of lung Qualified Codes: J18.9 - Pneumonia, unspecified organism
[2016-08-15] MEDS ORDERED: AZITHROMYCIN IV 500 MG in DEXTROSE 5% 250ML 250 ML IV STA (13:10)
[2016-08-15] MEDS ORDERED: ALBUTEROL HFA 8 GM INHALER INH PRN (13:15)
[2016-08-15] MEDS ORDERED: NITROGLYCERIN 0.4 MG SL PER TAB CHARGE SL PRN (13:15)
[2016-08-15] MEDS ORDERED: SODIUM POLYST. SULF SUSP 15G/60ML PO PRN (13:15)
[2016-08-15] MEDS ORDERED: POLYETHYLENE (MIRALAX) 17 GM PACK PO PRN (13:15)
[2016-08-15] MEDS ORDERED: HydrALAZINE HCL 20 MG/ML VIAL IV. PRN (13:15)
[2016-08-15] MEDS ORDERED: MAGNESIUM HYDROXIDE SUSP 30 ML UDC PO PRN (13:15)
[2016-08-15] MEDS ORDERED: ACETAMINOPHEN 325 MG TAB PO PRN (13:15)
[2016-08-15] MEDS ORDERED: ALUMINUM/MAGNESIUM/SIMETH (MAALOX MAX) 30 ML UDC PO PRN (13:15)
[2016-08-15] MEDS ORDERED: ONDANSETRON INJ 2 MG/ML 2 ML VIAL IV PRN (13:15)
[2016-08-15] MEDS ORDERED: PIPERACILL/TAZOBAC CONSULT ACTIVE PRN (13:45)
--- NOTE | 2016-08-15 13:48 | History and Physical ---
History & Physical Date & Time of Service: Aug 15, 2016 at 13:20 Chief Complaint: SOB Primary Care Physician: Francia Flores MD History of Present Illness Source: patient, family (- at bedside ), clinic records, hospital records Patient is a 76 y/o male, with PMHx of CAD s/p CABG, PVD, HTN, T2DM, and COPD who present to the ED because of worsening SOB x1 week. Patient was seen by urgent care in [place] 4 days ago and placed on Augmentin + Clarithromycin for pneumonia. He states that his symptoms have not improved. He admits to a productive cough w/ sputum being orange/yellow in color. He is currently requiring 2L O2 and does not wear oxygen at home. Patient was admitted in May of 2016 for pneumonia and treated w/ Levaquin. Per , patient has never fully recovered. +diarrhea- started with Augmentin treatment- 2-3 BMs per day. + decreased appetite. Patient denies any fever, chills, sweats, lightheadedness, dizziness, vision changes, CP, palpitations, edema, wheezing, abdominal pain, nausea, vomiting, urinary symptoms, melena, numbness/tingling, weakness, muscle/ joint pain, anxiety/depression, active bleeding, or new skin discoloration/ changes. Past Medical/Surgical History Medical Problems: 1. CAD s/p CAGB x3 vessel 2. HTN 3. T2DM 4. Prostate cancer 5. PVD 6. COPD Surgical History: 1. PVD w/ right lower extremity stent placement 2. CABG 3. Aneurysm repair Family History Patient reports no known family medical history. Social History Smoking Status: Former Smoker Marital Status: Housing status: lives with family Occupational Status: retired Allergies Coded Allergies: No Known Allergies (Unverified , 08/15/16) Home Medications Scheduled Albuterol Hfa (Ventolin Hfa), 2 PUFFS INH Q4H Amoxicillin & Pot Clavulanate (Augmentin 500MG), 1,000 MG PO Q6H Aspirin (Aspirin Ec), 81 MG PO DAILY Atorvastatin (Lipitor), 20 MG PO QPM Carvedilol (Coreg), 25 MG PO AMPM Clarithromycin (Clarithromycin Er), 500 MG PO BID Clopidogrel (Plavix), 75 MG PO DAILY Diltiazem Hcl Extended Release (Diltiazem Hcl Er), 120 MG PO DAILY Lisinopril (Prinivil), 20 MG PO DAILY Metformin HCl (Metformin HCl), 1,000 MG PO QPM Metformin Hcl (Glucophage), 500 MG PO DAILY Probiotic Product (Probiotic), 2 CAP PO BID Sitagliptin Phosphate (Januvia), 100 MG PO DAILY Physical Exam Vital Signs Date Time Temp Pulse Resp B/P (MAP) Pulse Ox O2 Delivery O2 Flow Rate FiO2 08/15/16 12:56 84 16 133/73 97 Nasal Cannula 3.0 08/15/16 11:50 83 24 128/74 98 Nasal Cannula 3.0 08/15/16 11:00 88 Room Air 08/15/16 11:00 96 Nasal Cannula 3.0 08/15/16 11:00 36.8 86 26 125/58 88 Room Air 08/15/16 11:00 96 Nasal Cannula 3.0 08/15/16 10:58 82 General Appearance: no apparent distress, + pertinent finding (2L O2 nasal cannula ) Head: normocephalic, atraumatic Eyes: normal inspection, PERRL ENT: hearing grossly normal Neck: supple Respiratory/Chest: lungs clear, no respiratory distress, no accessory muscle use, + decreased breath sounds (throughout all lung brody, > at lung bases ) Cardiovascular: regular rate, rhythm Abdomen/GI: normal bowel sounds, non tender, soft Back: normal inspection Extremities/Musculoskelatal: no calf tenderness, no pedal edema Neurologic/Psych: alert, normal mood/affect, oriented x 3 Skin: normal color, warm/dry, no rash Diagnostics Laboratory Results Results Past 24 Hours Test 08/15/16 10:20 Range/Units White Blood Count 9.99 4.8-10.8 K/uL Red Blood Count 3.43 4.7-6.1 M/uL Hemoglobin 11.1 14.0-18.0 g/dL Hematocrit 35.4 42-52 % Mean Corpuscular Volume 103.2 80-100 fL Mean Corpuscular Hemoglobin 32.4 25-34 pg Mean Corpuscular Hemoglobin Concent 31.4 32-36 g/dl Platelet Count 226 130-400 K/uL Mean Platelet Volume 9.0 7.4-10.4 fL Neutrophils (%) (Auto) 68.4 % Lymphocytes (%) (Auto) 3.1 % Monocytes (%) (Auto) 17.8 % Eosinophils (%) (Auto) 9.9 % Basophils (%) (Auto) 0.5 % Neutrophils # (Auto) 6.83 1.4-6.5 K/uL Lymphocytes # (Auto) 0.31 1.2-3.4 K/uL Monocytes # (Auto) 1.78 0.11-0.59 K/uL Eosinophils # (Auto) 0.99 0-0.5 K/uL Basophils # (Auto) 0.05 0-0.2 K/uL RDW Standard Deviation 60.0 36.4-46.3 fL RDW Coefficient of Variation 16.0 11.5-14.5 % Immature Granulocyte % (Auto) 0.3 % Immature Granulocyte # (Auto) 0.03 0.00-0.02 K/uL Prothrombin Time 11.8 9.0-12.0 SECONDS Prothromb Time International Ratio 1.1 0.9-1.1 Activated Partial Thromboplast Time 30.1 21.0-31.0 SECONDS Partial Thromboplastin Ratio 1.2 Sodium Level 140 136-145 mmol/L Potassium Level 5.9 3.5-5.1 mmol/L Chloride Level 107 98-107 mmol/L Carbon Dioxide Level 25 21-32 mmol/L Anion Gap 8.0 3-11 mmol/L Blood Urea Nitrogen 29 7-18 mg/dl Creatinine 2.00 0.60-1.40 mg/dl Est Creatinine Clear Calc Drug Dose 33.4 ml/min Estimated GFR () 37.0 Estimated GFR (Non- 31.9 BUN/Creatinine Ratio 14.4 10-20 Random Glucose 99 70-99 mg/dl Calcium Level 8.5 8.5-10.1 mg/dl Total Bilirubin 0.5 0.2-1 mg/dl Aspartate Amino Transf (AST/SGOT) 15 15-37 U/L Alanine Aminotransferase (ALT/SGPT) 15 12-78 U/L Alkaline Phosphatase 87 45-117 U/L Total Creatine Kinase 42 39-308 U/L Creatine Kinase MB 0.9 0.5-3.6 ng/ml Creatine Kinase MB Ratio 2.1 0-3.0 Troponin I 0.032 0-0.045 ng/ml Total Protein 5.9 6.4-8.2 gm/dl Albumin 2.3 3.4-5.0 gm/dl Globulin 3.6 2.5-4.0 gm/dl Albumin/Globulin Ratio 0.6 0.9-2 Microbiology Results 08/15/16 Blood Culture, Received Pending 08/15/16 Blood Culture, Received Pending Diagnostic Radiology CHEST 2 VIEWS ROUTINE CLINICAL HISTORY: Respiratory distress. Cough. COMPARISON STUDY: 05/24/2016 FINDINGS: The heart is enlarged. There are postsurgical changes of midline sternotomy. There are right lower and middle lobe airspace opacities suspicious for pneumonia. There is associated right pleural effusion. There is an old right-sided rib fracture. There is no overt failure.[ IMPRESSION: Right lower and middle lobe airspace opacities suspicious for pneumonia. Right pleural effusion. Clinical and radiographic follow-up is recommended. Electronically signed by: Matt Falk M.D. 08/15/2016 12:19 PM Dictated Date/Time: 08/15/2016 12:17 PM The status of this report is Signed. Draft = Not yet reviewed or approved by Radiologist. Signed = Reviewed and approved by Radiologist. EKG YUKO DRAKE ID:[id number] 15-AUG-2016 10:57:04 [facility] Normal sinus rhythm T wave abnormality, consider anterolateral ischemia Abnormal ECG When compared with ECG of 26-MAY-2016 07:25, T wave inversion no longer evident in Inferior leads T wave inversion less evident in Anterior leads QT has shortened 25mm/s 10mm/mV 150Hz 8.0 SP2 12SL 241 DERICK: 10 Referred by: ED Unconfirmed Vent. rate 82 BPM VA interval 132 ms QRS duration 82 ms QT/QTc 358/418 ms P-R-T axes 13 3 153 -[birth year]R-1940 (76 yr) Male 0lb Room: Loc:15 Data Base Design Analyst:BARTOLOME RINCON Test ind: Impression Assessment and Plan Patient is a 76 y/o male, with PMHx of CAD s/p CABG, PVD, HTN, T2DM, and COPD, who present to the ED because of worsening SOB x1 week. Right lower/middle lobe pneumonia w/ hypoxia and acute on chronic COPD exacerbation- failed outpatient treatment: - IV Zosyn + Levaquin - Prednisone 20 mg daily and taper - DuoNebs QID and q4 hrs PRN - O2 protocol, wean as tolerated- does not wear O2 at home - BCx, sputum culture, and MRSA swab pending - Consult ID, appreciate recommendations Hyperkalemia at 5.9: - Admit to tele for cardiac monitoring - Trend cardiac enzymes- initial enzymes negative - T wave abnormality on EKG- repeat QAM and PRN w/ CP - Kayexalate 15 g daily PRN for K >5.5 - Follow PRP JOSE on CKD, stage III- baseline Cr. 1.4: - IVF @ 100 ml/hr - Follow PRP HTN: - Hold Lisinopril 20 mg daily due to JOSE - Hydralazine IV 10 mg PRN Macrocytic anemia, baseline hgb 11.0- STABLE: - B12/folate- WNL in 05/2016 PVD: Continue ASA 81 mg daily, Plavix 75 mg daily, Atorvastatin 20 mg HS Chronic diastolic CHF- STABLE: - Watch for fluid overload w/ IVF treatment- during last admission patient had acute exacerbation - Continue Coreg 25 mg daily, Diltiazem 120 mg daily T2DM: - Hold Metformin and Januvia - [facility] ACHS w/ sliding insulin scale GI Prophylaxis: Maalox PRN, IV Zofran PRN, Colace and/or Milk of Mag PRN DVT prophylaxis: KENDRA and SCDs, Plavix + ASA Code Status: LEVEL V, DNR Dispo: From home, lives w/ - social insurance administrator consulted - PT/OT consulted PA Physician Supervision Note: I was present with the PA during the history and exam. I discussed the case with the resident and agree with the findings and plan as documented in the note. Any exceptions or clarifications are listed here: 76 y/o M COPD - treated aggressively for PNM 4 days prior with Augmentin and Clarithromycin. Did not symptomatically improve although current symptoms may be more related to a COPD exacerbation than ongoing PNM. OE AAO x 3 S1,2 R Decreased air at based - mild crackles NT, ND, BS + No CCE P: Pt will be treated for COPD exacerbation - nebs, steroids - 02 protocol We have started him on Zosyn, Levaquin pending culture results and evaluation by the ID service Documented By: Deandre Camilo Level of Care Telemetry Resuscitation Status FULL RESUSCITATION VTE Prophylaxis VTE Risk Assessment Done? Y/N: Yes Risk Level: Moderate Given or contraindicated: Other Anticoagulation, T.E.D. Stockings, SCD's
[2016-08-15] MEDS ORDERED: LEVOFLOXACIN CONSULT ACTIVE PRN (14:30)
[2016-08-15] MEDS ORDERED: ALBUT/IPRATROP 3MG/0.5MG NEB 3 ML VIAL INH PRN (14:30)
[2016-08-15 15:22] VITALS: BP 138/81; PULSE 84; TEMP 36.5; O2SAT 96
[2016-08-15] MEDS: SODIUM CHLORIDE 0.9% 1000ML 1,000 ML IV SCH ×2 (15:59→23:15)
[2016-08-15] MEDS ORDERED: NURSING DECISION MEDICATION ORDER SCH (16:00)
[2016-08-15] MEDS ORDERED: ALBUT/IPRATROP 3MG/0.5MG NEB 3 ML VIAL INH SCH (16:00)
[2016-08-15] MEDS: LEVOFLOXACIN / D5W 750 MG in PREMIXED IN D5W 150 ML IV SCH (16:02)
[2016-08-15] MEDS ORDERED: EUCERIN CR 120 GM JAR EXT PRN (16:15)
[2016-08-15] MEDS: INSULIN ASPART 100 UNITS/ML 3 ML PEN SC SCH ×2 (16:30→20:35)
[2016-08-15] MEDS: PIPERACILL/TAZOBAC IV 4.5 GM in DEXTROSE 5% 100ML 100 ML IV SCH (17:54)
[2016-08-15] MEDS: ALBUT/IPRATROP 3MG/0.5MG NEB 3 ML VIAL INH SCH ×2 (17:56→20:00)
[2016-08-15 19:35] VITALS: BP 151/74; PULSE 84; TEMP 36.6; O2SAT 97
[2016-08-15 20:33] VITALS: BP 165/79; PULSE 86
[2016-08-15] MEDS: CARVEDILOL 25 MG TAB PO SCH (20:34)
[2016-08-15] MEDS: LACTOBACILLUS ACIDOPHILUS (FLORANEX) TAB PO SCH (20:35)
[2016-08-15] MEDS: ATORVASTATIN 20 MG TAB PO SCH (20:35)
[2016-08-15 22:01] VITALS: BP 130/63; PULSE 77
[2016-08-15 23:45] VITALS: BP 145/66; PULSE 78; TEMP 36.7; O2SAT 94
[2016-08-16] VITALS (13 sets, daily range): BP systolic 113–161; BP diastolic 60–82; PULSE 71–93; TEMP 36.3–36.8; O2SAT 90–98
[2016-08-16] MEDS: PIPERACILL/TAZOBAC IV 4.5 GM in DEXTROSE 5% 100ML 100 ML IV SCH ×2 (01:57→09:06)
[2016-08-16] MEDS: ALBUT/IPRATROP 3MG/0.5MG NEB 3 ML VIAL INH SCH ×4 (07:31→18:49)
--- NOTE | 2016-08-16 07:43 | Clinical Documentation Query ---
CLINICAL DOCUMENTATION QUERY 76 year old male who presents to the Emergency Room with complaints of worsening shortness of breath. He has failed outpatient treatment of pneumonia and has battled pneumonia since May without resolution. In your clinical opinion is this patient being managed for: (X ) Likely Gram Negative pneumonia in setting failed outpatient treatment requiring treatment with IV Zosyn & Levofloxacin. ( ) Possible Aspiration pneumonia in setting of COPD exacerbation ( ) Other explanation of clinical findings (Please Explain) ( ) Unable to determine (Please Define) ( ) Need to Discuss ( ) Not Agree The medical record reflects the following clinical findings, treatment, and risk factors. Clinical Indicators: As above. RA hypoxia 88%, tachypnea 26, RML and RLL pneumonia per H&P. Treatment: IVF's, O2, IV Zosyn, IV Levofloxacin, sputum culture, Risk Factors: Age, COPD, failed treatment, Please clarify and document your clinical opinion in the progress notes and discharge summary. Terms such as "probable", "suspected", "likely", "questionable", "possible", or "still to be ruled out" are acceptable. IF IN AGREEMENT, YOU MUST DOCUMENT ABOVE DIAGNOSTIC STATEMENT IN DAILY PROGRESS NOTES AND DISCHARGE SUMMARY. This document is not part of the patient's record. Thank You, Rodriguez Mcgrath, RN [phone]
[2016-08-16 08:23] LABS: BASO % 0.3 %; BASO ABS # 0.02 K/uL (0-0.2); COMPLETE YES; EOS % 1.8 %; IG% 0.1 %; LYMPH % 5.6 %; LYMPH ABS # 0.44 K/uL (1.2-3.4); MEAN CORPUSCULAR HEMOGLOBIN 33.9 pg (25-34); MEAN CORPUSCULAR HGB CONC 32.9 g/dl (32-36); MEAN PLATELET VOLUME 8.9 fL (7.4-10.4); MONO % 14.9 %; NEUT % 77.3 %; PLATELET COUNT 198 K/uL (130-400); WHITE BLOOD COUNT 7.91 K/uL (4.8-10.8)
[2016-08-16 09:01] LABS: CALCIUM 8.7 mg/dl (8.5-10.1)
[2016-08-16 09:04] LABS: BUN/CREATININE RATIO 13.8 (10-20); CREATININE 1.7 mg/dl (0.60-1.40); POTASSIUM 4.6 mmol/L (3.5-5.1)
[2016-08-16] MEDS: CARVEDILOL 25 MG TAB PO SCH ×2 (09:05→20:30)
[2016-08-16] MEDS: ASPIRIN 81 MG ECTAB PO SCH (09:05)
[2016-08-16] MEDS: DILTIAZEM HCL 120 MG EXT REL CAP PO SCH (09:05)
[2016-08-16] MEDS: CLOPIDOGREL BISULFATE 75 MG TAB PO SCH (09:06)
[2016-08-16] MEDS: LACTOBACILLUS ACIDOPHILUS (FLORANEX) TAB PO SCH ×2 (09:06→20:30)
[2016-08-16] MEDS: INSULIN ASPART 100 UNITS/ML 3 ML PEN SC SCH ×4 (09:06→20:30)
[2016-08-16] MEDS: SODIUM CHLORIDE 0.9% 1000ML 1,000 ML IV SCH ×2 (09:12→19:30)
--- NOTE | 2016-08-16 13:14 | Progress Note ---
Progress Note Date of Service Aug 16, 2016. Progress Note ID Consult Dictated #[id number] A/P: 1. CAP 2. Leukocytosis -continue abx, follow cultures -If sputum culture negative and pt improves clinically, could complete 7 day course po levaquin -thank you
--- NOTE | 2016-08-16 14:46 | INFECT. DISEASE CONSULTATION ---
DATE OF CONSULTATION: 08/16/2016 DATE OF CONSULTATION: 08/16/2016. REQUESTING PHYSICIAN: Dr. Camilo. HISTORY OF PRESENT ILLNESS: This is a 76-year-old gentleman who was admitted from home after he had worsening shortness of breath for the past week. He was recently seen in urgent care center and placed on clarithromycin. He had been on this for 4 days for diagnosed pneumonia, but he did not have significant improvement in his symptoms. He was placed on intravenous antibiotics consisting of Zosyn and Levaquin on admission. He has been afebrile since admission. He does not have a leukocytosis. He did have diarrhea and a C. diff is pending; however, he denies any diarrhea on my examination. The sputum culture and blood cultures are pending; however, sputum culture Gram stain has rare gram negative rods. Chest x-ray did show a right lower lobe pneumonia. On my examination today, he states he is feeling significantly better. He denies any shortness of breath, cough, hemoptysis or chest pain. He denies any shortness of breath or dyspnea on exertion. He does admit to chronic lower extremity edema. He denies any nausea, vomiting, diarrhea or abdominal pain. He is eating well. He is asking to go home. All remaining review of systems are reviewed and are negative. PAST MEDICAL HISTORY: Significant for coronary artery disease, hypertension, type 2 diabetes, prostate cancer, peripheral vascular disease and COPD. PAST SURGICAL HISTORY: Significant for CABG, aneurysm repair, and lower extremity stent placement. FAMILY HISTORY: Noncontributory. SOCIAL HISTORY: Significant for history of tobacco use. He denies any drug use or alcohol use. He is and lives with his family. He denies any recent sick contacts. ALLERGIES: He has no known drug allergies. MEDICATIONS: Include Zosyn, aspirin, Plavix, diltiazem, Lipitor, Coreg, Floranex, DuoNebs, insulin, Levaquin, albuterol, prednisone, hydralazine, Tylenol, Maalox, milk of magnesia, Zofran, MiraLax. PHYSICAL EXAMINATION: VITAL SIGNS: He is afebrile, pulse 77, respiratory rate 18, blood pressure 161/82, oxygen saturation is 94% on room air. GENERAL: He is awake, alert and oriented x3, he is in no acute distress. HEAD, EYES, EARS, NOSE, AND THROAT: Mucous membranes are moist. Extraocular muscles are intact. HEART: Regular. LUNGS: Clear bilaterally. ABDOMEN: Soft, nontender, nondistended. There is chronic lower extremity edema bilaterally. LABORATORY STUDIES: CBC today reveals a white blood cell count of 7.9, hemoglobin 11.2 and platelets are 198. Chemistry panel reveals a sodium of 138, potassium 4.6, chloride 104, bicarbonate 21, BUN is 23, creatinine 1.7, glucose is 114, creatinine is improved from 2.0 on admission, C. diff is negative. Sputum culture has rare gram negative rods with final pending. Blood cultures are pending. IMAGING: As reviewed above. ASSESSMENT AND PLAN: Community-acquired pneumonia. He can remain on current antibiotics pending the results of sputum culture. If he does not have a positive sputum culture I would recommend continuing him on oral Levaquin for a total of 7 days. We will follow along with you. Thank you for this consultation.
--- NOTE | 2016-08-16 15:10 | Progress Note ---
Subjective Date of Service: Aug 16, 2016. Subjective Pt evaluation today including: conversation w/ patient, physical exam, chart review, lab review, review of studies, review of inpatient medication list Pt resting comfortably in bed States improvement in sob Productive cough No fevers or chills No acute events overnight Problem List Medical Problems: (1) Hypoxia Status: Acute (2) Pneumonia Status: Acute (3) Pneumonia Status: Acute Review of Systems Constitutional: No fever, No chills, No sweats, No weight loss, No weakness Eyes: No worsening of vision, No eye pain, No redness, No discharge ENT: No hearing loss, No unusual epistaxis, No nasal symptoms, No sore throat Respiratory: + cough, + sputum, + wheezing, + shortness of breath, + dyspnea on exertion Cardiac: No chest pain, No orthopnea, No PND, No edema Abdomen: No pain, No nausea, No vomiting, No diarrhea Musculoskeletal: No joint pain, No muscle pain, No swelling, No calf pain Male : No dysuria, No urinary frequency, No incontinence, No nocturia more than once/night Neurologic: No memory loss, No paralysis, No weakness, No numbness/tingling Psychiatric: No depression symptoms, No anhedonism, No anxiety, No insomnia Endo: No fatigue, No excessive thirst, No excessive urination Skin: No rash, No itch Objective Vital Signs Date Time Temp Pulse Resp B/P (MAP) Pulse Ox O2 Delivery O2 Flow Rate FiO2 08/16/16 14:47 36.4 75 20 121/67 (85) 95 Room Air 08/16/16 12:19 Room Air 08/16/16 11:41 77 18 94 Room Air 08/16/16 11:31 36.3 78 20 161/82 (108) 94 Room Air 08/16/16 08:55 94 Room Air 08/16/16 07:31 85 20 98 Nasal Cannula 2.0 08/16/16 06:57 36.4 93 20 158/79 (105) 95 Nasal Cannula 2.0 08/16/16 04:07 36.8 72 18 138/69 (92) 94 Nasal Cannula 2.0 08/16/16 04:00 96 Nasal Cannula 2.0 08/16/16 00:00 96 Nasal Cannula 2.0 08/15/16 23:45 36.7 78 18 145/66 (92) 94 Nasal Cannula 2.0 08/15/16 22:01 77 130/63 (85) 08/15/16 20:33 86 165/79 (107) 08/15/16 20:00 Nasal Cannula 2.0 08/15/16 19:35 36.6 84 22 151/74 (99) 97 Nasal Cannula 2.5 08/15/16 15:22 36.5 84 20 138/81 96 Nasal Cannula 2.0 Physical Exam General Appearance: WD/WN, no apparent distress Eyes: normal inspection, PERRL, EOMI, sclerae normal Neck: supple, no adenopathy, thyroid normal, no JVD Respiratory/Chest: chest non-tender, no accessory muscle use, + decreased breath sounds, + rhonchi, + wheezing Cardiovascular: regular rate, rhythm, no edema, no gallop, no JVD Abdomen: normal bowel sounds, non tender, soft, no organomegaly Extremities: normal range of motion, non-tender, normal inspection, no pedal edema Neurologic/Psychiatric: no motor/sensory deficits, alert, normal mood/affect, oriented x 3 Skin: normal color, warm/dry, no rash Lymphatic: no adenopathy Laboratory Results Last 24 Hours Test 08/15/16 15:29 08/15/16 16:02 08/15/16 18:00 08/15/16 18:17 Bedside Glucose 79 mg/dl 86 mg/dl Creatine Kinase MB Ratio Creatine Kinase MB 1.2 ng/ml Troponin I 0.025 ng/ml Test 08/15/16 20:30 08/16/16 07:20 08/16/16 07:41 08/16/16 11:13 Bedside Glucose 147 mg/dl 107 mg/dl 114 mg/dl White Blood Count 7.91 K/uL Red Blood Count 3.30 M/uL Hemoglobin 11.2 g/dL Hematocrit 34.0 % Mean Corpuscular Volume 103.0 fL Mean Corpuscular Hemoglobin 33.9 pg Mean Corpuscular Hemoglobin Concent 32.9 g/dl Platelet Count 198 K/uL Mean Platelet Volume 8.9 fL Neutrophils (%) (Auto) 77.3 % Lymphocytes (%) (Auto) 5.6 % Monocytes (%) (Auto) 14.9 % Eosinophils (%) (Auto) 1.8 % Basophils (%) (Auto) 0.3 % Neutrophils # (Auto) 6.12 K/uL Lymphocytes # (Auto) 0.44 K/uL Monocytes # (Auto) 1.18 K/uL Eosinophils # (Auto) 0.14 K/uL Basophils # (Auto) 0.02 K/uL RDW Standard Deviation 58.0 fL RDW Coefficient of Variation 15.3 % Immature Granulocyte % (Auto) 0.1 % Immature Granulocyte # (Auto) 0.01 K/uL Sodium Level 138 mmol/L Potassium Level 4.6 mmol/L Chloride Level 104 mmol/L Carbon Dioxide Level 21 mmol/L Anion Gap 13.0 mmol/L Blood Urea Nitrogen 23 mg/dl Creatinine 1.70 mg/dl Est Creatinine Clear Calc Drug Dose 39.1 ml/min Estimated GFR () 45.0 Estimated GFR (Non- 38.9 BUN/Creatinine Ratio 13.8 Random Glucose 91 mg/dl Calcium Level 8.7 mg/dl Assessment and Plan Patient is a 76 y/o male, with PMHx of CAD s/p CABG, PVD, HTN, T2DM, and COPD, who present to the ED because of worsening SOB x1 week. CAP with right lower/middle lobe PNA w/ hypoxia and acute on chronic COPD exacerbation- failed outpatient treatment: Likely Gram Negative pneumonia in setting failed outpatient treatment requiring treatment with IV Zosyn & Levofloxacin. - Improvement in shortness of breath - Cont DuoNebs QID and q4 hrs PRN - Consult ID, appreciate recommendations, cont zosyn and levaquin, if cx neg, can cont levaquin for 7 days total Hyperkalemia at 5.9 improved to 4.6 - Admitted to tele for cardiac monitoring - Trend cardiac enzymes - T wave abnormality on EKG- repeat QAM and PRN w/ CP - Kayexalate 15 g daily PRN for K >5.5 - Follow PRP JOSE on CKD, stage III- baseline Cr. 1.4: - IVF @ 100 ml/hr - Follow PRP -Improving to 1.7 from 2.0 on admission HTN: Stable - Hold Lisinopril 20 mg daily due to JOSE - Hydralazine IV 10 mg PRN Macrocytic anemia, baseline hgb 11.0- STABLE: - B12/folate- WNL in 05/2016 PVD: Continue ASA 81 mg daily, Plavix 75 mg daily, Atorvastatin 20 mg HS Chronic diastolic CHF- STABLE: - Watch for fluid overload w/ IVF treatment- during last admission patient had acute exacerbation - Continue Coreg 25 mg daily, Diltiazem 120 mg daily T2DM: - Hold Metformin and Januvia - [facility] ACHS w/ sliding insulin scale GI Prophylaxis: Maalox PRN, IV Zofran PRN, Colace and/or Milk of Mag PRN DVT prophylaxis: KENDRA and SCDs, Plavix + ASA Code Status: LEVEL V, DNR
[2016-08-16] MEDS: PIPERACILL/TAZOBAC IV 3.375 GM in DEXTROSE 5% 100ML 100 ML IV SCH (17:30)
[2016-08-16] MEDS: ATORVASTATIN 20 MG TAB PO SCH (20:30)
[2016-08-17] VITALS (13 sets, daily range): BP systolic 131–170; BP diastolic 66–76; PULSE 65–91; TEMP 36.4–36.8; O2SAT 89–93
[2016-08-17] MEDS: PIPERACILL/TAZOBAC IV 3.375 GM in DEXTROSE 5% 100ML 100 ML IV SCH ×2 (01:08→08:14)
[2016-08-17] MEDS: SODIUM CHLORIDE 0.9% 1000ML 1,000 ML IV SCH (05:19)
[2016-08-17 06:38] LABS: BASO % 0.2 %; BASO ABS # 0.01 K/uL (0-0.2); COMPLETE YES; HEMATOCRIT 31.9 % (42-52); LYMPH % 5.5 %; LYMPH ABS # 0.36 K/uL (1.2-3.4); MEAN CORPUSCULAR HEMOGLOBIN 31.7 pg (25-34); MEAN CORPUSCULAR HGB CONC 31.7 g/dl (32-36); MEAN PLATELET VOLUME 8.4 fL (7.4-10.4); MONO % 17.1 %; NEUT % 68.2 %; PLATELET COUNT 224 K/uL (130-400); RED BLOOD COUNT 3.19 M/uL (4.7-6.1); WHITE BLOOD COUNT 6.54 K/uL (4.8-10.8)
[2016-08-17 07:13] LABS: CALCIUM 7.9 mg/dl (8.5-10.1); CREATININE 1.5 mg/dl (0.60-1.40); POTASSIUM 4.4 mmol/L (3.5-5.1)
[2016-08-17] MEDS: ALBUT/IPRATROP 3MG/0.5MG NEB 3 ML VIAL INH SCH ×4 (07:20→18:20)
[2016-08-17] MEDS: LACTOBACILLUS ACIDOPHILUS (FLORANEX) TAB PO SCH ×2 (08:08→19:46)
[2016-08-17] MEDS: CARVEDILOL 25 MG TAB PO SCH ×2 (08:08→19:47)
[2016-08-17] MEDS: ASPIRIN 81 MG ECTAB PO SCH (08:08)
[2016-08-17] MEDS: CLOPIDOGREL BISULFATE 75 MG TAB PO SCH (08:08)
[2016-08-17] MEDS: DILTIAZEM HCL 120 MG EXT REL CAP PO SCH (08:08)
[2016-08-17] MEDS: INSULIN ASPART 100 UNITS/ML 3 ML PEN SC SCH ×4 (08:14→21:00)
[2016-08-17] MEDS ORDERED: NURSING VERBAL MED ORDER ONE (10:00)
--- NOTE | 2016-08-17 14:47 | Progress Note ---
Subjective Date of Service: Aug 17, 2016. Subjective Pt evaluation today including: conversation w/ patient, physical exam, chart review, lab review, review of studies, review of inpatient medication list States mild improvement in cough and shortness of breath Does not feel back to baseline Ambulating in room States chest still feels tight Problem List Medical Problems: (1) Hypoxia Status: Acute (2) Pneumonia Status: Acute (3) Pneumonia Status: Acute Review of Systems Constitutional: No fever, No chills, No sweats, No weight loss Eyes: No worsening of vision, No eye pain, No redness, No discharge Respiratory: + cough, + sputum, + wheezing, + shortness of breath Cardiac: No chest pain, No orthopnea, No PND, No edema, No claudication Abdomen: No pain, No nausea, No vomiting, No diarrhea, No constipation Musculoskeletal: No joint pain, No muscle pain, No swelling Male : No dysuria, No urinary frequency, No incontinence, No nocturia more than once/night Neurologic: No memory loss, No paralysis Psychiatric: No depression symptoms, No anhedonism, No anxiety, No insomnia Endo: No fatigue, No excessive thirst, No excessive urination Skin: No rash, No itch Objective Vital Signs Date Time Temp Pulse Resp B/P (MAP) Pulse Ox O2 Delivery O2 Flow Rate FiO2 08/17/16 12:30 Room Air 08/17/16 11:39 36.8 72 18 157/76 (103) 92 Room Air 08/17/16 11:11 72 20 92 Room Air 08/17/16 08:35 Room Air 08/17/16 07:20 75 18 93 Room Air 08/17/16 06:59 36.4 91 20 154/67 (96) 90 Nasal Cannula 2.0 08/17/16 04:00 90 Nasal Cannula 2.0 08/17/16 03:45 36.5 81 16 159/75 (103) 90 Nasal Cannula 2.0 08/17/16 00:00 93 Room Air 08/16/16 23:33 36.5 72 18 113/60 (77) 91 Room Air 08/16/16 19:47 36.4 71 18 155/77 (103) 92 Room Air 08/16/16 19:40 Room Air 08/16/16 18:50 75 18 93 Room Air 08/16/16 15:39 Room Air 08/16/16 15:29 75 18 90 Room Air 08/16/16 14:47 36.4 75 20 121/67 (85) 95 Room Air Physical Exam General Appearance: WD/WN, no apparent distress Neck: supple, no adenopathy, thyroid normal, no JVD Respiratory/Chest: chest non-tender, no accessory muscle use, + decreased breath sounds, + wheezing Cardiovascular: regular rate, rhythm, no edema, no gallop, no JVD Abdomen: normal bowel sounds, non tender, soft Neurologic/Psychiatric: alert, normal mood/affect, oriented x 3 Laboratory Results Last 24 Hours Test 08/16/16 16:23 08/16/16 20:02 08/17/16 06:01 08/17/16 07:23 Bedside Glucose 169 mg/dl 165 mg/dl 82 mg/dl White Blood Count 6.54 K/uL Red Blood Count 3.19 M/uL Hemoglobin 10.1 g/dL Hematocrit 31.9 % Mean Corpuscular Volume 100.0 fL Mean Corpuscular Hemoglobin 31.7 pg Mean Corpuscular Hemoglobin Concent 31.7 g/dl Platelet Count 224 K/uL Mean Platelet Volume 8.4 fL Neutrophils (%) (Auto) 68.2 % Lymphocytes (%) (Auto) 5.5 % Monocytes (%) (Auto) 17.1 % Eosinophils (%) (Auto) 9.0 % Basophils (%) (Auto) 0.2 % Neutrophils # (Auto) 4.46 K/uL Lymphocytes # (Auto) 0.36 K/uL Monocytes # (Auto) 1.12 K/uL Eosinophils # (Auto) 0.59 K/uL Basophils # (Auto) 0.01 K/uL RDW Standard Deviation 54.4 fL RDW Coefficient of Variation 14.8 % Immature Granulocyte % (Auto) 0.0 % Immature Granulocyte # (Auto) 0.00 K/uL Sodium Level 141 mmol/L Potassium Level 4.4 mmol/L Chloride Level 109 mmol/L Carbon Dioxide Level 25 mmol/L Anion Gap 7.0 mmol/L Blood Urea Nitrogen 27 mg/dl Creatinine 1.50 mg/dl Est Creatinine Clear Calc Drug Dose 44.7 ml/min Estimated GFR () 52.4 Estimated GFR (Non- 45.2 BUN/Creatinine Ratio 18.0 Random Glucose 89 mg/dl Calcium Level 7.9 mg/dl Test 08/17/16 11:19 Bedside Glucose 88 mg/dl Assessment and Plan Patient is a 76 y/o male, with PMHx of CAD s/p CABG, PVD, HTN, T2DM, and COPD, who present to the ED because of worsening SOB x1 week. CAP with right lower/middle lobe PNA w/ hypoxia and acute on chronic COPD exacerbation- failed outpatient treatment: Likely Gram Negative pneumonia in setting failed outpatient treatment requiring treatment with IV Zosyn & Levofloxacin. - Blood and sputum cx neg - Levquin continued and zosyn dicontinued - Mild iImprovement in shortness of breath - Cont DuoNebs QID and q4 hrs PRN - Consult ID, appreciate recommendations, can cont levaquin for 7 days total Hyperkalemia resolved - Admitted to [facility] for cardiac monitoring - Trend cardiac enzymes - Kayexalate 15 g daily PRN for K >5.5 - Follow PRP JOSE on CKD, stage III - Improving, Cr 1.5 on 08/17 with baseline Cr. 1.4: - IVF @ 100 ml/hr - Follow PRP -Improving to 1.7 from 2.0 on admission HTN: Stable - Hold Lisinopril 20 mg daily due to JOSE - Hydralazine IV 10 mg PRN Macrocytic anemia, baseline hgb 11.0- STABLE: - B12/folate- WNL in 05/2016 PVD: Continue ASA 81 mg daily, Plavix 75 mg daily, Atorvastatin 20 mg HS Chronic diastolic CHF- STABLE: - Watch for fluid overload w/ IVF treatment- during last admission patient had acute exacerbation - Continue Coreg 25 mg daily, Diltiazem 120 mg daily T2DM: - Hold Metformin and Januvia - [facility] ACHS w/ sliding insulin scale GI Prophylaxis: Maalox PRN, IV Zofran PRN, Colace and/or Milk of Mag PRN DVT prophylaxis: KENDRA and SCDs, Plavix + ASA Code Status: LEVEL V, DNR
[2016-08-17] MEDS: LEVOFLOXACIN / D5W 750 MG in PREMIXED IN D5W 150 ML IV SCH (16:54)
[2016-08-17] MEDS: ATORVASTATIN 20 MG TAB PO SCH (19:46)
[2016-08-18 03:59] VITALS: BP 167/71; PULSE 80; TEMP 36.4; O2SAT 95
[2016-08-18 05:53] LABS: BASO % 0.3 %; BASO ABS # 0.02 K/uL (0-0.2); COMPLETE YES; EOS % 7.6 %; HEMATOCRIT 29.5 % (42-52); IG% 0.2 %; LYMPH % 8.9 %; LYMPH ABS # 0.54 K/uL (1.2-3.4); MEAN CELL VOLUME 100.3 fL (80-100); MEAN CORPUSCULAR HGB CONC 33.9 g/dl (32-36); MEAN PLATELET VOLUME 8.5 fL (7.4-10.4); MONO % 19.5 %; NEUT % 63.5 %; PLATELET COUNT 223 K/uL (130-400); RED BLOOD COUNT 2.94 M/uL (4.7-6.1); WHITE BLOOD COUNT 6.06 K/uL (4.8-10.8)
[2016-08-18 06:28] LABS: BUN/CREATININE RATIO 17.5 (10-20); CALCIUM 8.2 mg/dl (8.5-10.1); CREATININE 1.3 mg/dl (0.60-1.40); POTASSIUM 4.5 mmol/L (3.5-5.1)
[2016-08-18 06:45] VITALS: BP 163/72; PULSE 81; TEMP 36.4; O2SAT 94
[2016-08-18] MEDS: ALBUT/IPRATROP 3MG/0.5MG NEB 3 ML VIAL INH SCH ×2 (07:57→11:06)
[2016-08-18 07:58] VITALS: PULSE 84; O2SAT 97
[2016-08-18] MEDS: LACTOBACILLUS ACIDOPHILUS (FLORANEX) TAB PO SCH (08:07)
[2016-08-18] MEDS: CLOPIDOGREL BISULFATE 75 MG TAB PO SCH (08:07)
[2016-08-18] MEDS: ASPIRIN 81 MG ECTAB PO SCH (08:07)
[2016-08-18] MEDS: DILTIAZEM HCL 120 MG EXT REL CAP PO SCH (08:07)
[2016-08-18] MEDS: CARVEDILOL 25 MG TAB PO SCH (08:08)
[2016-08-18] MEDS: INSULIN ASPART 100 UNITS/ML 3 ML PEN SC SCH ×2 (08:11→13:31)
[2016-08-18 11:06] VITALS: PULSE 87; O2SAT 94
[2016-08-18 11:16] VITALS: BP 160/68; PULSE 72; TEMP 36.5; O2SAT 99
[2016-08-18] MEDS ORDERED: LEVO750T23 PO (11:42)
--- NOTE | 2016-08-18 11:42 | Discharge Instructions ---
Discharge Instructions Date of Service Aug 18, 2016. Admission Reason for Admission: Hypoxia, Pneumonia Discharge Discharge Diagnosis / Problem: Hypoxia, pneumonia Discharge Goals Goal(s): Decrease discomfort, Improve function, Increase independence, Improve disease control, Diagnostic testing, Prevent Disease Progression Activity Recommendations Activity Limitations: resume your previous activity Exercise/Sports Limitations: none Shower/Bathe: no limitations Patient to be discharged home Antibiotic levaquin 750 mg tablet once a day for 5 more days sent to pharmacy If worsening fevers, chill, productive cough please report to ER Please follow up with your primary care provider as scheduled . Current Hospital Diet Patient's current hospital diet: AHA Diet (Heart Healthy), Diabetes Type 2 Diet Discharge Diet Recommended Diet: AHA Diet (Heart Healthy), Diabetes Type 2 Diet Pending Studies Studies pending at discharge: no Laboratory Results Hemoglobin A1c Test 05/25/16 06:37 Range/Units Estimated Average Glucose 114 mg/dl Hemoglobin A1c 5.6 4.5-5.6 % Medical Emergencies . Who to Call and When: Medical Emergencies: If at any time you feel your situation is an emergency, please call 911 immediately. . Non-Emergent Contact Non-Emergency issues call your: Primary Care Provider Call Non-Emergent contact if: you have a fever, your pain is worsening . . "Provider Documentation" section prepared by Sameer Redman. . VTE Core Measure Inpt VTE Proph given/why not?: Other Anticoagulation, T.E.D. Stockings, SCD's
[2016-08-18 11:44] VITALS: BP 160/68; PULSE 72; TEMP 36.5; O2SAT 99
--- NOTE | 2016-08-18 12:42 | Discharge Summary ---
Discharge Summary Date of Service Aug 18, 2016. Discharge Summary Admission Date: Aug 15, 2016 at 13:20 Discharge Date: Aug 18, 2016 Discharge Disposition: Home Principal Diagnosis: Community acquired pneumonia Medication Reconciliation New Medications: Levofloxacin (Levaquin) 750 Mg Tab 1 TAB PO DAILY for 5 Days, #5 TAB Continued Medications: Albuterol Hfa (Ventolin Hfa) 200 Puffs/71989 Mcg Aers 2 PUFFS INH Q4H Aspirin (Aspirin Ec) 81 Mg Tab 81 MG PO DAILY Atorvastatin (Lipitor) 20 Mg Tab 20 MG PO QPM Carvedilol (Coreg) 25 Mg Tab 25 MG PO AMPM Clopidogrel (Plavix) 75 Mg Tab 75 MG PO DAILY Diltiazem Hcl Extended Release (Diltiazem Hcl Er) 120 Mg Cap 120 MG PO DAILY Lisinopril (Prinivil) 20 Mg Tab 20 MG PO DAILY Metformin Hcl (Glucophage) 500 Mg Tab 500 MG PO DAILY WITH LUNCH Metformin HCl (Metformin HCl) 500 Mg Tab 1000 MG PO QPM WITH SUPPER. Probiotic Product (Probiotic) 1 Cap Cap 2 CAP PO BID Sitagliptin Phosphate (Januvia) 100 Mg Tab 100 MG PO DAILY Discontinued Medications: Amoxicillin & Pot Clavulanate (Augmentin 500MG) 1 Tab Tab 1000 MG PO Q6H started 08/12/16 for 10day therapy Clarithromycin (Clarithromycin Er) 500 Mg Tab 500 MG PO BID started 08/12/16 for 10day therapy Discharge Exam Review of Systems: Constitutional: No fever, No chills, No sweats, No weakness Eyes: No worsening of vision, No eye pain, No redness ENT: No hearing loss, No unusual epistaxis, No nasal symptoms, No sore throat, No tinnitus Respiratory: + cough, + sputum, No wheezing, No shortness of breath, No dyspnea at rest Cardiovascular: No chest pain, No orthopnea, No PND, No edema Abdomen: No pain, No nausea, No vomiting, No diarrhea Musculoskeletal: No joint pain, No muscle pain, No swelling, No calf pain Genitourinary - Male: No hematuria, No dysuria, No urinary frequency, No urinary urgency Neurologic: No memory loss, No paralysis, No weakness, No numbness/tingling Psychiatric: No depression symptoms, No anhedonism, No anxiety, No insomnia Physical Exam: General Appearance: WD/WN, no apparent distress ENT: normal ENT inspection, hearing grossly normal, TMs normal, pharynx normal Neck: supple, no adenopathy, thyroid normal, no JVD Respiratory/Chest: chest non-tender, + decreased breath sounds, + wheezing Cardiovascular: regular rate, rhythm, no edema, no gallop, no JVD Abdomen / GI: normal bowel sounds, non tender, soft, no organomegaly Extremities: normal inspection, no calf tenderness, normal capillary refill , no pedal edema Neurologic/Psychiatric: alert, normal mood/affect, normal reflexes, oriented x 3 Skin: normal color, warm/dry, no rash Lymphatic: no adenopathy Hospital Course Patient is a 76 y/o male, with PMHx of CAD s/p CABG, PVD, HTN, T2DM, and COPD, who present to the ED because of worsening SOB x1 week. CAP with right lower/middle lobe PNA w/ hypoxia and acute on chronic COPD exacerbation- failed outpatient treatment: Likely Gram Negative pneumonia in setting failed outpatient treatment requiring treatment with IV Zosyn & Levofloxacin. - Blood and sputum cx neg - Levquin continued and zosyn dicontinued - Mild improvement in shortness of breath - Cont DuoNebs QID and q4 hrs PRN - Consult ID, appreciate recommendations, can cont levaquin for 7 days total, 5 days more on discharge Hyperkalemia resolved - Admitted to tele for cardiac monitoring - Trend cardiac enzymes - Kayexalate 15 g daily PRN for K >5.5 - Follow PRP JOSE on CKD, stage III - Resolved, Cr 1.3 on with baseline Cr. 1.4: - IVF @ 100 ml/hr - Follow PRP HTN: Stable - Cont Lisinopril 20 mg as JOSE resolved - Hydralazine IV 10 mg PRN Macrocytic anemia, baseline hgb 11.0- STABLE: - B12/folate- WNL in 05/2016 PVD: Continue ASA 81 mg daily, Plavix 75 mg daily, Atorvastatin 20 mg HS Chronic diastolic CHF- STABLE: - Watch for fluid overload w/ IVF treatment- during last admission patient had acute exacerbation - Continue Coreg 25 mg daily, Diltiazem 120 mg daily T2DM: - Hold Metformin and Januvia - [facility] ACHS w/ sliding insulin scale GI Prophylaxis: Maalox PRN, IV Zofran PRN, Colace and/or Milk of Mag PRN DVT prophylaxis: KENDRA and SCDs, Plavix + ASA Code Status: LEVEL V, DNR Total Time Spent: Greater than 30 minutes This includes examination of the patient, discharge planning, medication reconciliation, and communication with other providers. Discharge Instructions Please refer to the electronic Patient Visit Report (Discharge Instructions) for additional information. Additional Copies To Francia Flores MD
== END 2016-08-18 14:00 | disposition home or self-care (01) | DRG 190 ==
LOC: EDBD 10:46 → C.EDC 10:47 → C.MED 13:20 → ENRESERV 14:00
PROVIDERS: ADMIT Internal Medicine; ATTEND Hospitalist
DX: J44.0 Chronic obstructive pulmonary disease with (acute) lower respiratory infection (principal); J15.6 Pneumonia due to other Gram-negative bacteria; N17.9 Acute kidney failure, unspecified; I50.32 Chronic diastolic (congestive) heart failure; I13.0 Hypertensive heart and chronic kidney disease with heart failure and stage 1 through stage 4 chronic kidney disease, or unspecified chronic kidney disease; J44.1 Chronic obstructive pulmonary disease with (acute) exacerbation; N18.3 Chronic kidney disease, stage 3 (moderate); D53.9 Nutritional anemia, unspecified; Z87.891 Personal history of nicotine dependence; E87.5 Hyperkalemia; R09.02 Hypoxemia; E11.9 Type 2 diabetes mellitus without complications; Z85.46 Personal history of malignant neoplasm of prostate; I73.9 Peripheral vascular disease, unspecified; Z95.1 Presence of aortocoronary bypass graft; Z79.82 Long term (current) use of aspirin